=== PATIENT | female | born 1975 | race Caucasian/White ===

== ENCOUNTER → 2017-10-16 08:28 | Outpatient (CLI) | payer OTHER, SELFPAY ==
--- NOTE | 2017-10-16 08:30 | US_ITS ---
US transvaginal Ordering Physician: Monique Arteaga MD Patient Age: 42 years: Female HISTORY: ITS.REASON: abnormal/excessive bleeding Dysfunctional uterine bleeding. Last cycle lasted 2 months. Heavy bleeding. TECHNIQUE: Transvaginal pelvic ultrasound COMPARISON : CT abdomen pelvis 06/28/2012. Transvaginal pelvic ultrasound 07/02/2012. : FINDINGS : Difficult patient is scant. UTERUS retroverted retroflexed making it difficult to scan. The partially obscured.. Uterus 7 cm length x 3.3 cm AP x 5.55 cm wide A large nabothian cyst at cervix measures up to nearly 2 cm on my measurement this was seen on a previous CT and ultrasound from 2012 . other smallernabothian cyst observed. One measuring 7.7 mm Echogenic thickened Endometrial stripe measures to 1 cm LEFT OVARY x 4.2 cm X 3 cm x 2.6 cm Numerous follicles at margin left ovary. Dominant Cyst left ovary measuring up to 1.9 cm cm.. Other smaller follicles measuring less measures up to 1 cm. RIGHT OVARY: 4.1 cm x 2.5 x 2.1 cm. Largest cyst right ovary measuring up to 1.4 x 0 .8 cm other smaller follicles noted. Additional Area towards inferior aspect the right ovary imaged. Initially felt hemorrhagic cyst but there is some minimal flow to the its margins... This measures up to 2.2 cm length x 1.9 cm x 1.5 cm. Appears to be solid or semisolid with slightly mixed density. This may benefit from follow-up in several months. . No fluid in cul-de-sac IMPRESSION: ...... 1.. Difficult scan 2. Retroverted uterus, with thickened endometrium measuring 1 cm . 3. Large nabothian measuring up to 2 cm (which has been present since 2013 studies) 4. Ovaries mild enlarged bilaterally.: Follicular cystsbilaterally Left Ovary: dominant 1.9 cm cm dominant follicle cyst. Along with other additional moderate sized follicles Right Ovary: Largest follicle 1.4 cm. Also note ill-defined 2.2 cm x 1.9 cm area inferiorly-whichmay reflect a collapsing regressing hemorrhagic cyst although cannot exclude developing solid lesion. & Noted Doppler along margins.. May benefit from follow-up ultrasound in 2-3 months to further evaluate.
== END ==
PROVIDERS: Family Provider Family Medicine; PCP Family Medicine; Visit Provider Obstetrics & Gynecology
DX: N93.8 Other specified abnormal uterine and vaginal bleeding (principal); N92.0 Excessive and frequent menstruation with regular cycle; N94.6 Dysmenorrhea, unspecified; E28.2 Polycystic ovarian syndrome
CPT/HCPCS: 76830

== ENCOUNTER → 2018-08-21 11:22 | Outpatient (CLI) | payer OTHER, SELFPAY ==
--- NOTE | 2018-08-21 11:36 | XR_ITS ---
XR knee RT 4V HISTORY: ITS.REASON: ACUTE PAIN OF RIGHT KNEE ORDERING PHYSICIAN: GLORY Hopkins PATIENT AGE: 43 years COMPARISON: None FINDINGS: No fracture or dislocation. No lytic or blastic change. Normal mineralization. No significant arthritic changes evident. There is a small area bony exostosis along the proximal medial aspect of the tibia at the Roxanol diaphyseal region. The small area of exostosis points distally and may be due to a small osteochondroma. There is some minimal irregularity at this area of exostosis proximally. Follow-up is recommended to confirm stability. There are no previous exams available for comparison. IMPRESSION: 1. Small exostosis at the proximal medial aspect of the tibia . Consider follow-up to confirm stability 2. Otherwise negative
== END ==
PROVIDERS: PCP Physician Assistant; Visit Provider Physician Assistant
DX: M25.561 Pain in right knee (principal)
CPT/HCPCS: 73564

== ENCOUNTER → 2018-09-03 15:26 | Outpatient (CLI) | payer OTHER, SELFPAY ==
--- NOTE | 2018-09-03 15:31 | MR_ITS ---
MR knee RT wo con HISTORY: Medial right knee pain and swelling ITS.REASON: ACUTE PAIN OF RIGHT KNEE ORDERING PHYSICIAN: Radha Alanis MD PATIENT AGE: 43 years Comparison: 08/21/2018 TECHNIQUE: Standard multiplanar multiecho sequences are performed without contrast. FINDINGS: The cruciate ligaments are intact. The collateral ligaments, patellar tendon, and quadriceps tendon have an unremarkable appearance. The patellar cartilage is well preserved. No meniscal tear.. No fracture or dislocation or bone marrow edema evident. There is a medium sized knee joint effusion in the suprapatellar region. A loculated fluid collection is present along the proximal medial aspect of the tibia. This is incompletely imaged along its inferior margin that measures at least 4.4 cm cephalad to caudad 1.6 cm transverse and 2.3 cm AP. This is adjacent to a area of exostosis involving the proximal tibia as seen on the radiograph is well-circumscribed and without underlying edema. There is mild amount of edema within the subcutaneous soft tissues of the knee IMPRESSION: 1. No evidence of internal derangement of the knee 2. Medium sized knee joint effusion. 3. Loculated fluid collection along the medial and proximal aspect of the tibia adjacent to a small exostosis of the proximal tibia anterior to the medial head of the gastrocnemius .. This collection is medial to the sartorius and gracilis tendons and anterior to the semitendinosis tendon
== END ==
PROVIDERS: PCP Family Medicine; Visit Provider Family Medicine
DX: M25.561 Pain in right knee (principal)
CPT/HCPCS: 73721

== ENCOUNTER 2021-01-21 15:45 | Emergency (ER) | payer OTHER, SELFPAY ==
[2021-01-21 16:25] VITALS: BP 138/77; PULSE 75; RESP 17; TEMP 36.9; O2SAT 99; BMI 38.0
--- NOTE | 2021-01-21 16:51 | HMH.EDUTC ---
[facility] [place] Clinical Impression: Encounter for laboratory testing for COVID-19 virus Disposition: Home, Self-Care Condition on Discharge: Good Instructions: DI for COVID-19 (Suspected or Confirmed ), Coronavirus Disease 2019, Preventing the Spread of Coronavirus Discharge Instructions Additional Instructions: *Monitor Temp, Over the counter Motrin or Tylenol as directed/as needed Tylenol every 4 hours and Motrin every 6 hours (as long as your family doctor has told you that you can take it) for fever or pain. and straight to ER if unable to lower temp less than 101.0 after medication given Follow up IMMEDIATELY for new or worsening symptoms or no Noticeable improvement over the next 48-72 hours. 911 for difficulty breathing or swallowing You were tested for today for COVID19 your test result should be back in the next 24-48 hours, you may call to the [facility] to see if your test results are back in the next 48 hours [phone] [facility] hours are 9am-9pm You was given a handout with instructions for Self Quarantine and Self isolation for while you wait on test results and what to do if they are positive If you are positive the Health Dept will be contacting you also Referrals: Zach Jin MD [Primary Care Provider] - As needed Time of Disposition: 16:52 Medical Decision Making - José Miguel Inquiry Pt receiving controlled substance: No José Miguel was queried for this patient: No Vital Signs: 01/21/21 16:25 Temperature 98.4 F Temperature Source Oral Pulse Rate [Left Brachial] 75 Respiratory Rate 17 Blood Pressure [Left Arm] 138/77 Blood Pressure Mean [Left Arm] 97 Blood Pressure Source [Left Arm] Automatic Cuff Blood Pressure Position [Left Arm] Sitting 02 Sat by Pulse Oximetry 99 Oxygen Delivery Method Room Air Orders (Tests/Meds): ORDERS Category Date Time Status Covid-19 Nasal PCR ([facility]) Routine Lab 01/21/21 16:24 Ordered [facility] [place]PI - General Stated complaint: Covid test Time Seen by Provider: 01/21/21 16:51 Mode of Arrival: Ambulatory Source of Information: Patient Limitations: No Limitations Description of Symptoms (Recalled from Triage Doc. by RN): COVID TEST D/T EXPOSURE. DENIES SYMPTOMS HEENT Symptoms (Recalled from RN notes): No Resp Symptoms (Recalled from RN notes): No Skin Symptoms (Recalled from RN notes): No MS Symptoms (Recalled from RN notes): No Functional Status (Recalled from RN notes): WNL - History of Present Illness Provider Complaint: Patient states that she was around someone about a week ago that has since tested positive for COVID State that she is not having any symptoms but wanted to get tested to make sure - Related Data Home Medications Medication Instructions Recorded Confirmed omeprazole 20 mg capsule,delayed 20 mg PO ONCE 10/08/17 09/27/18 release Meloxicam 15 mg PO DAILY 12/31/17 09/27/18 Allergies Allergy/AdvReac Type Severity Reaction Status Date / Time cefaclor Allergy Verified 09/27/18 13:31 From BACTRIM Allergy Unknown I-ITCHING Uncoded 09/27/18 13:31 Penicillin Allergy Unknown I-HIVES Uncoded 09/27/18 13:31 - Worker's Comp Is this a Worker's Comp case?: No [facility] History - Hepatitis A Screen Drug use history?: No High risk sexual behaviors?: No History of sexually transmitted infection?: No Currently employed?: No Childcare worker?: No Do you have indoor plumbing?: Yes Do you have electricity?: Yes Attestation statement:: This patient has been screened for Hepatitis A risk factors. I have reviewed the patient's past medical history: Yes Medical History: Denies:: Anxiety, Asthma, Cancer, Depression, Diabetes Mellitus Type 1, Diabetes Mellitus Type 2, Hyperlipidemia, Hypertension, Internal Pacemaker, MRSA, Seizures Other Medical History: Denies: Blood Transfusion Reaction Other Surgeries: Yes: . No: Pacemaker Amputation: No Fractures: No Comment: ring finger on right hand, tip of finger,2014, LAP,2003 - So
[2021-01-21 16:55] VITALS: BP 138/77; PULSE 75; RESP 17; TEMP 36.9; O2SAT 99
== END 2021-01-21 16:59 | disposition home or self-care (01) ==
PROVIDERS: Emergency Provider Nurse Practitioner; PCP Family Medicine
DX: Z20.822 Contact with and (suspected) exposure to COVID-19 (principal); Z88.0 Allergy status to penicillin; Z88.2 Allergy status to sulfonamides
CPT/HCPCS: 99202; G0463; U0003

== ENCOUNTER 2021-02-06 18:14 | Emergency (ER) | payer OTHER, SELFPAY ==
[2021-02-06 20:27] VITALS: BP 141/94; PULSE 71; RESP 16; TEMP 36.6; O2SAT 98; BMI 32.6
--- NOTE | 2021-02-06 20:38 | HMH.EDUTC ---
[facility] [place] Disposition Clinical Impression: Exposure to COVID-19 virus Disposition: Home, Self-Care Condition on Discharge: Good Instructions: Preventing the Spread of Coronavirus Discharge Instructions Additional Instructions: Drink plenty of fluids. Take tylenol for pain or fever. Return if you begin to have difficulty breathing. Follow up with your regular doctor. GO TO THE ER FOR ANY WORSENING SYMPTOMS Quarantine until you know the results of your covid-19 test. If it is positive, the health department should call you and give you further instructions about your length of Quarantine and other thing. Referrals: Zach Jin MD [Primary Care Provider] - Time of Disposition: 20:38 Medical Decision Making - Medical Records Medical records reviewed: No: I reviewed the patient's medical records. - José Miguel Inquiry Pt receiving controlled substance: No Vital Signs: 02/06/21 20:27 02/06/21 20:45 Temperature 97.9 F 97.9 F Temperature Source Oral Pulse Rate 71 Pulse Rate [Left Radial] 71 Respiratory Rate 16 16 Blood Pressure 141/94 H Blood Pressure [Left Arm] 141/94 H Blood Pressure Mean [Left Arm] 109 Blood Pressure Source [Left Arm] Automatic Cuff Blood Pressure Position [Left Arm] Sitting 02 Sat by Pulse Oximetry 98 Oxygen Delivery Method Room Air [facility] [place] HPI - General Stated complaint: covid test Time Seen by Provider: 02/06/21 20:45 Mode of Arrival: Ambulatory Source of Information: Patient Limitations: No Limitations Description of Symptoms (Recalled from Triage Doc. by RN): Requesting COVID swab. Denies symptoms or exposure. HEENT Symptoms (Recalled from RN notes): No Resp Symptoms (Recalled from RN notes): No Skin Symptoms (Recalled from RN notes): No MS Symptoms (Recalled from RN notes): No Functional Status (Recalled from RN notes): n/a - History of Present Illness Provider Complaint: She is here needing to be tested for covid before she goes around some of her family. - Related Data Home Medications Medication Instructions Recorded Confirmed omeprazole 20 mg capsule,delayed 20 mg PO ONCE 10/08/17 09/27/18 release Meloxicam 15 mg PO DAILY 12/31/17 09/27/18 Allergies Allergy/AdvReac Type Severity Reaction Status Date / Time cefaclor Allergy Verified 09/27/18 13:31 From BACTRIM Allergy Unknown I-ITCHING Uncoded 09/27/18 13:31 Penicillin Allergy Unknown I-HIVES Uncoded 09/27/18 13:31 - Worker's Comp Is this a Worker's Comp case?: No [facility] History - Hepatitis A Screen Drug use history?: No High risk sexual behaviors?: No History of sexually transmitted infection?: No Currently employed?: No Childcare worker?: No Do you have indoor plumbing?: Yes Do you have electricity?: Yes Attestation statement:: This patient has been screened for Hepatitis A risk factors. I have reviewed the patient's past medical history: Yes Medical History: Denies:: Anxiety, Asthma, Cancer, Depression, Diabetes Mellitus Type 1, Diabetes Mellitus Type 2, Hyperlipidemia, Hypertension, Internal Pacemaker, MRSA, Seizures Other Medical History: Denies: Blood Transfusion Reaction Other Surgeries: Yes: . No: Pacemaker Amputation: No Fractures: No Comment: ring finger on right hand, tip of finger,2013, ,2002 - Social History Smoking Status: Never smoker #Yrs smoked (if former smoker): 15 Alcohol Intake: never Substance Use Type: denies use Occupational Status: employed - Psychiatric History Pschychiatric History:: Denies:: Anxiety, Depression Family Hx:: Diabetes, Hypertension, Thyroid Disorder ROS Obtained: Yes All systems reviewed & no additional complaints - Constitutional Constitutional: Reports system reviewed and no additional complaints, except as docu - Eyes Eyes: Reports system reviewed and no additional complaints, except as docu - ENT Ears, Nose, Mouth, and Throat: Reports system reviewed and no additional complaints, except a
[2021-02-06 20:45] VITALS: BP 141/94; PULSE 71; RESP 16; TEMP 36.6; O2SAT 98
== END 2021-02-06 20:46 | disposition home or self-care (01) ==
PROVIDERS: Emergency Provider Nurse Practitioner Family; PCP Family Medicine
DX: Z11.52 Encounter for screening for COVID-19 (principal); Z88.0 Allergy status to penicillin
CPT/HCPCS: 99202; G0463; U0003

== ENCOUNTER 2022-03-08 15:47 | Emergency (ER) | payer OTHER, SELFPAY ==
[2022-03-08 15:50] VITALS: BP 125/74; PULSE 65; RESP 16; TEMP 37.1; O2SAT 98; BMI 35.0
[2022-03-08 16:12] VITALS: BMI 34.0
[2022-03-08 16:20] LABS: Microscopic, Urine URINE MICROSCOPIC (MICROSCOPIC)
--- NOTE | 2022-03-08 16:28 | PC.NURSE ---
ed md at bedside for evaluation
--- NOTE | 2022-03-08 16:36 | HMH.EDGENADL ---
Discharge Plan Disposition Patient Disposition: Home, Self-Care Condition: Good Prescriptions Prescriptions: New cefadroxil 500 mg capsule 500 mg PO BID 7 Days Qty: 14 0RF valacyclovir 1 gram tablet 1,000 mg PO TID 7 Days Qty: 21 0RF No Action omeprazole 20 mg capsule,delayed release(DR/EC) 20 mg PO ONCE meloxicam 15 MG tablet 15 mg PO DAILY Referrals Follow up/Referrals: Zach Jin MD [Primary Care Provider] - See instructions Activity Restrictions/Add. Instructions Additional Instructions/Restrictions: Take both antibiotics as prescribed. If you have any other concerning signs or symptoms, return to the ER or your primary care doctor for further management. Stay hydrated while taking these medications. Clinical Impressions Clinical Impression: Flank pain, acute, UTI (urinary tract infection) Discharge ED Provider: Dillon Cadena General Adult HPI General Stated complaint: right side pain Time Seen by Provider: 03/08/22 16:05 Mode of Arrival: Ambulatory Source of Information: Patient Limitations: No Limitations History of Present Illness HPI narrative: Is a 46-year-old female with history of PCOS, obesity, status post tubal ligation who is presenting with right-sided abdominal pain. Patient states that 1 night prior to arrival, she was walking around her house when she had an acute, stabbing right-sided abdominal pain that started in her right flank and goes around to her abdomen. Since that time, it has been constant. She tried to take ibuprofen for symptomatic relief, it helped mildly. A couple hours later, continued to get progressively worse. Applying pressure seems to make it better, any other movement seems to make it worse. Denies fevers, chills, nausea, vomiting, diarrhea, constipation, dysuria, hematuria, frequency, urgency, abnormal pelvic discharge, or any other concerning history. Related Data Home Medications Medication Instructions Recorded Confirmed omeprazole 20 mg capsule,delayed 20 mg PO ONCE GERD 10/08/17 09/27/18 release meloxicam 15 mg tablet 15 mg PO DAILY plantar fascitis 12/31/17 09/27/18 Previous Rx's Medication Instructions Recorded cefadroxil 500 mg capsule 500 mg PO BID 7 days #14 caps 03/08/22 valacyclovir 1 gram tablet 1,000 mg PO TID 7 days #21 tabs 03/08/22 Allergies Allergy/AdvReac Type Severity Reaction Status Date / Time cefaclor Allergy Verified 09/27/18 13:31 From BACTRIM Allergy Unknown I-ITCHING Uncoded 09/27/18 13:31 Penicillin Allergy Unknown I-HIVES Uncoded 09/27/18 13:31 [facility] Social History Smoking Status: Never smoker alcohol intake: never substance use type: denies use current occupational status: employed Travel in the last 8 weeks: None ROS Obtained: Yes All systems reviewed & no additional complaints except as documented Physical Exam General General appearance: alert and in no apparent distress Head Head exam: atraumatic, normocephalic and normal inspection Eye Eye exam: Present normal appearance, PERRL and EOMI ENT ENT exam: Present normal exam, normal oropharynx, mucous membranes moist, TM's normal bilaterally and normal external ear exam Neck Neck exam: Present normal inspection, full ROM and trachea midline; Absent meningismus or lymphadenopathy Chest Chest inspection: Present normal inspection and symmetric chest wall rise; Absent tenderness Respiratory Respiratory exam: Present normal lung sounds bilaterally; Absent respiratory distress Cardiovascular Cardiovascular exam: Present regular rate and normal rhythm; Absent JVD Abdominal Exam Abdominal exam: Present soft, tenderness (Right side/right flank), normal bowel sounds and other (No evidence of rash, overlying skin changes at this time); Absent distention or guarding Extremities Exam Extremities exam: Present normal inspection, full ROM and normal capillary refill; Absent calf tenderness Back Exam Back exam: Pre
[2022-03-08 16:37] LABS: Appearance,Urine CLEAR (Clear); Bilirubin,Urine Negative (Negative); Blood, Urine Negative (Negative); Color,Urine YELLOW (Yellow); Glucose,Urine (UA) Negative (Negative); Ketones,Urine Negative (Negative); Leukocyte Esterase,Urine TRACE (Negative); Nitrate,Urine POSITIVE (Negative); Protein,Urine Negative (Negative); Specific Gravity, Urine 1.025 (1.005-1.030); Urobilinogen,Urine 0.2 EU/dl (0.2)
[2022-03-08 16:41] LABS: Urine Pregnancy, HCG Qual. Negative (Negative)
[2022-03-08 17:40] LABS: Alanine Aminotransferase 17 U/L (12-78); Albumin Level 4.2 g/dl (3.5-5.0); Albumin/Globulin Ratio 1.3 (1.1-1.8); Alkaline Phosphatase 84 U/L (38-126); Anion Gap 14.5 mEq/L (5-15); Aspartate Amino Transferase 26 U/L (14-36); Blood Urea Nitrogen 15 mg/dl (7-17); Carbon Dioxide 27 mmol/L (22.0-30.0); Chloride 101 mmol/L (98-107); Creatinine Clearance Estimated 158 mL/min (50-200); Estimated Glomerular Filt Rate 89 ml/min (>60); GFR (African American) 108 ML/MIN (>60); Globulin 3.2 g/dL (1.3-3.2); Glucose 117 mg/dl (74-100); Lipase 94 U/L (23-300); Potassium 4.5 mmoL/L (3.5-5.1); Sodium 138 mmol/L (136-145); Total Protein,Serum 7.4 g/dl (6.3-8.2)
[2022-03-08 17:42] LABS: Bilirubin,Total 0.1 mg/dl (0.2-1.3)
--- NOTE | 2022-03-08 17:46 | PC.NURSE ---
ROUNDED ON PT, SITTING UP IN BED TALKING WITH VISITOR, DENIES ANY PAIN RELIEF. MD NOTIFIED
[2022-03-08 17:48] LABS: Bacteria,Urine 4+ /lpf
[2022-03-08 17:57] LABS: Basophils # 0.1 K/mm3 (0-0.2); Eosinophils # 0.1 K/mm3 (0.0-0.4); Hematocrit 39.6 % (37.0-47.0); Hemoglobin 13.3 g/dL (12.2-16.2); Lymphocytes # 1.6 K/mm3 (0.7-4.5); Lymphocytes % 18.5 % (10-50); Mean Corpuscular HGB Conc 33.6 g/dL (31.8-35.4); Mean Corpuscular Hemoglobin 29.6 pg (27.0-31.2); Mean Corpuscular Volume 87.9 fl (81-99); Mean Platelet Volume 8.3 fl (7.4-10.4); Monocytes # 0.5 K/mm3 (0.1-1.0); Monocytes % 5.7 % (1.7-9.3); Neutrophils # 6.4 K/mm3 (1.8-7.8); Neutrophils % 73.8 % (37.0-80.0); Platelet Count 264 K/mm3 (142-424); Red Blood Count 4.51 M/mm3 (4.20-5.40); Red Cell Distribution Width 13.8 % (11.5-17.5); White Blood Count 8.7 K/mm3 (4.8-10.8)
--- NOTE | 2022-03-08 18:00 | PC.NURSE ---
ED MD AT BEDSIDE TO REEVALUATE PT
[2022-03-08 18:29] VITALS: BP 153/99; PULSE 76; RESP 17; TEMP 36.8; O2SAT 100
== END 2022-03-08 18:35 | disposition home or self-care (01) ==
PROVIDERS: Emergency Provider Emergency Medicine; PCP Family Medicine
DX: R10.31 Right lower quadrant pain (principal); E28.2 Polycystic ovarian syndrome; M72.2 Plantar fascial fibromatosis; K21.9 Gastro-esophageal reflux disease without esophagitis; B02.9 Zoster without complications; Z79.899 Other long term (current) drug therapy; Z88.0 Allergy status to penicillin; Z88.8 Allergy status to other drugs, medicaments and biological substances
CPT/HCPCS: 80053; 81001; 81025; 83690; 85025; 87086; 87088; 87186; 99283

== ENCOUNTER → 2022-03-17 07:58 | Outpatient (CLI) | payer OTHER, SELFPAY ==
--- NOTE | 2022-03-17 08:01 | US_ITS ---
FINAL REPORT TECHNIQUE: Multiple transverse and longitudinal images CLINICAL HISTORY: ABD PAIN,RUQ PAIN FINDINGS: The gallbladder shows no wall thickening. 6 mm gallbladder polyp. Subcentimeter gallstones. No biliary ductal dilatation is appreciated. No fluid collections are seen. Limited portions of the right liver are fatty infiltrated. Limited portions of the right kidney are unremarkable. IMPRESSION: Gallbladder polyp and gallstones. Fatty liver. Reviewed, Interpreted and Dictated by Radha Desai MD Transcribed by Jerrod Arce Authenticated and [facility]
== END ==
PROVIDERS: PCP Family Medicine; Visit Provider Nurse Practitioner Family
DX: R10.11 Right upper quadrant pain (principal)
CPT/HCPCS: 76705

== ENCOUNTER → 2022-04-12 08:21 | Outpatient (CLI) | payer OTHER, SELFPAY ==
[2022-04-12 09:08] LABS: Basophils # 0.1 K/mm3 (0-0.2); Basophils % 1.1 % (0.1-2.0); Eosinophils # 0.1 K/mm3 (0.0-0.4); Eosinophils % 1.3 % (0.1-12.0); Hemoglobin 13.4 g/dL (12.2-16.2); Lymphocytes # 1.7 K/mm3 (0.7-4.5); Mean Corpuscular Hemoglobin 28.4 pg (27.0-31.2); Mean Corpuscular Volume 88.9 fl (81-99); Mean Platelet Volume 8.4 fl (7.4-10.4); Monocytes # 0.3 K/mm3 (0.1-1.0); Monocytes % 4.4 % (1.7-9.3); Neutrophils # 4.3 K/mm3 (1.8-7.8); Neutrophils % 67.4 % (37.0-80.0); Platelet Count 287 K/mm3 (142-424); Red Blood Count 4.72 M/mm3 (4.20-5.40); White Blood Count 6.4 K/mm3 (4.8-10.8)
[2022-04-12 10:07] LABS: Alanine Aminotransferase 13 U/L (12-78); Albumin Level 3.9 g/dl (3.5-5.0); Albumin/Globulin Ratio 1.4 (1.1-1.8); Alkaline Phosphatase 87 U/L (38-126); Anion Gap 16.2 mEq/L (5-15); Aspartate Amino Transferase 20 U/L (14-36); Bilirubin,Total 0.4 mg/dl (0.2-1.3); Blood Urea Nitrogen 16 mg/dl (7-17); Calcium 8.9 mg/dl (8.4-10.2); Carbon Dioxide 27 mmol/L (22.0-30.0); Chloride 101 mmol/L (98-107); Estimated Glomerular Filt Rate 77 ml/min (>60); GFR (African American) 93 ML/MIN (>60); Globulin 2.8 g/dL (1.3-3.2); Glucose 120 mg/dl (74-100); Potassium 4.2 mmoL/L (3.5-5.1); Sodium 140 mmol/L (136-145); Total Protein,Serum 6.7 g/dl (6.3-8.2)
== END ==
PROVIDERS: PCP Family Medicine; Visit Provider Surgery
DX: Z01.812 Encounter for preprocedural laboratory examination (principal); K80.20 Calculus of gallbladder without cholecystitis without obstruction
CPT/HCPCS: 36415; 80053; 85025

== ENCOUNTER 2022-04-14 06:59 | Day surgery (SDC) | payer OTHER, SELFPAY ==
[2022-04-14] VITALS (14 sets, daily range): BP systolic 116–170; BP diastolic 74–100; PULSE 60–80; RESP 15–18; TEMP 36.2–43; O2SAT 90–98; BMI 34.3
[2022-04-14 07:22] LABS: Urine Pregnancy, HCG Qual. Negative (Negative)
--- NOTE | 2022-04-14 08:09 | P.PN_ITS ---
[facility] Medical History Bright's disease History of gastroesophageal reflux (GERD) Hypertension Surgical History History of amputation of finger of right hand History of section History of gynecological procedure History of tubal ligation Family History Other Thyroid cancer Social History Smoking Status: Former smoker pack-years: 15 alcohol intake: never substance use type: denies use current occupational status: employed Travel in the last 8 weeks: None [facility] Anesthesia Checklist Patient Identification Patient Identification: Arm Band and Verbal (Name & ) Structural Data Admitted From: Home Planned Operative Procedure/s: Lap. cholecysectomy Consent for Planned Operative Procedure(s) Verified: Yes NPO Status Verified Time NPO: 00:00 Additional verifications Anesthesia Reactions: No Hx Blood Transfusions: No Blood Transfusion Reaction: No Airway Assessment C-Spine Mobility Assessed: Yes TMJ Mobility Assessed: Yes Dentition: Edentulous Neurological Assessment Level of Consciousness: Awake Hx Seizures: No Numbness or tingling in extremities: No Anesthesia Plan Anesthesia Risk discussed: Yes Anesthesia Plan: Verified ASA Class: II Anesthesia Type: General
--- NOTE | 2022-04-14 10:02 | EXP.OP.NOTE ---
Date of procedure: 04/14/22 Pre-op Diagnosis:: Symptomatic gallstones Post-op Diagnosis:: Same Procedure performed:: Laparoscopic cholecystectomy Surgeon:: Phi Laureano MD Anesthesia: MALENA Estimated blood loss (mL): 15 Clinical Note:: Patient is a pleasant 46-year-old female who presents for cholecystectomy. She was referred by Yamileth Estrella for gallbladder.? I had previously taken care of the patient's for acute perforated appendicitis.? Patient had developed acute right upper thoracoabdominal flank pain which prompted ER evaluation on 03/08/2022.? Patient does state that she previously had shingles in 1992.? Patient was able to be managed as an outpatient.? She has had ongoing symptoms of relatively constant pain and discomfort in this location with occasional exacerbations.? She had taken 800 mg ibuprofen which gives her very temporary relief.? She underwent gallbladder ultrasound on 03/17/2022 which revealed 6 mm polyp as well as multiple subcentimeter gallstones with normal common bile duct and fatty liver. Operative findings:: She has somewhat thickened gallbladder. There is a large amount of fatty infiltration around the neck of the gallbladder. Operative note:: Patient was taken to the operating room. She was given preoperative intravenous antibiotics. In the operating room she was placed in a supine position. General anesthesia was induced via endotracheal tube. Abdomen was prepped and draped in the standard surgical fashion. Subumbilical skin incision was made in the previous laparoscopy scar. While performing abdominal wall lift Veress needle was inserted. CO2 pneumoperitoneum was achieved to 15 mmHg. 11 mm optical trocar was inserted at the umbilicus. She was positioned in reverse Trendelenburg left side down. A couple of 5 mm trochars were inserted in the right upper abdomen. 10 mm trocar was inserted in the epigastrium. She had some mild fatty infiltration of the liver. Gallbladder was grasped retracted anteriorly. Gallbladder was somewhat thickened. There was fatty infiltration around the neck of the gallbladder and guido hepatis. Infundibulum of the gallbladder was retracted anterior laterally. Blunt dissection was carried out the neck of the gallbladder ultimately identifying and isolating the cystic duct. Cystic artery was identified as well. Cystic duct was multiply clipped and sharply divided. Cystic artery was carefully coagulated with JOYCE ultrasonic robotic richard and divided. Gallbladder was dissected free from the liver in a retrograde fashion using JOYCE ultrasonic harmonic richard. There is a small amount of unavoidable spillage of bile from the gallbladder fundus and Hemoclip and Endoloop were placed on the gallbladder to close this. Gallbladder was then placed within an Endo Catch retrieval device and removed from the peritoneal cavity via the umbilical trocar site which required some minor stretching of the fascial incision for delivery. Gallbladder fossa was inspected for hemostasis. Some spot use of electrocautery was used on the gallbladder fossa for good hemostasis. Thorough irrigation was carried out until clear. Trochars were removed as CO2 pneumoperitoneum was evacuated. Fascia at the umbilicus was closed with several interrupted 0 Vicryl sutures. Local anesthetic was infiltrated. Skin incision was closed with 4-0 Monocryl in a subcuticular fashion. Dermabond and dressings were applied. Condition: stable Disposition: PACU Complications:: None immediately apparent
--- NOTE | 2022-04-14 10:12 | EXP.ANES.I ---
[facility] [place] Anesthesia Record Part I Anesthesia Record I Intake, IV Amount: 1,000 Estimated blood loss (mL): 10 Urine output (mL): 0 Blood Products used (#): none Blood Pressure: 144/93 SaO2: 95 Pulse Rate: 80 Respiratory Rate: 16 Temperature: 98.7 F Patient is:: Drowsy and Stable Stable to PACU at:: 10:05
--- NOTE | 2022-04-14 10:40 | SUR.PHASEI ---
1032 called and gave detailed report to Camilo Colmenares RN [id number] transported via stretcher to post op. vital signs stable. denies pain at this time. left in stable condition with Camilo Colmenares RN at bedside.
--- NOTE | 2022-04-14 14:31 | P.PNANES_ITS ---
[facility] Anesthesia Record Part II Anesthesia Record Part II Discharge Time: 10:35 Destination: Surgical Day Care (OP Surgery) PACU nurse assessment reviewed?: Yes Patient Condition:: Good Anesthesia Complications:: None Swallowing reflex intact?: Yes Cyanosis?: No Blood Pressure: 133/88 Pulse Rate: 64 Temperature: 98.7 F Mental Status: Alert & Oriented Pain level:: 0 Nausea and/or vomitting:: None Intake, IV Amount: 0
== END 2022-04-14 11:58 | disposition home or self-care (01) ==
PROVIDERS: PCP Family Medicine; Visit Provider Surgery
PROC: 0FT44ZZ Resection of Gallbladder, Percutaneous Endoscopic Approach (ICD-10-PCS; CPT 47562; principal; 2022-04-14 08:45)
DX: Z79.899 Other long term (current) drug therapy; K80.10 Calculus of gallbladder with chronic cholecystitis without obstruction
CPT/HCPCS: 47562; 81025; 96374; J2405; J2710

== ENCOUNTER → 2022-10-29 11:06 | Outpatient (CLI) | payer OTHER, SELFPAY ==
--- NOTE | 2022-10-29 11:11 | XR_ITS ---
FINAL REPORT CLINICAL HISTORY: LT KNEE PAIN FINDINGS: Left knee Three views were obtained. There is no acute fracture or dislocation. There are minimal degenerative changes of the medial compartment. No soft tissue abnormality is identified. IMPRESSION: No acute process. Reviewed, Interpreted and Dictated by Radha Desai MD Transcribed by Yamileth Iqbal Authenticated and [facility]
== END ==
LOC: RAD 11:07
PROVIDERS: PCP Nurse Practitioner Family; Visit Provider Nurse Practitioner Family
DX: M25.562 Pain in left knee (principal)
CPT/HCPCS: 73562

== ENCOUNTER 2022-11-24 12:24 | Emergency (ER) | payer OTHER, SELFPAY ==
[2022-11-24 12:30] VITALS: BP 146/83; BP 152/90; PULSE 82; PULSE 84; RESP 20; TEMP 36.8; O2SAT 96; O2SAT 97; BMI 34.7
--- NOTE | 2022-11-24 12:42 | XR_ITS ---
FINAL REPORT TECHNIQUE: Single view chest CLINICAL HISTORY: cough FINDINGS: A single view of the chest was obtained. The heart and mediastinum are within normal limits. The lungs are clear. There is no pneumothorax. Osseous structures are unremarkable. IMPRESSION: No acute cardiopulmonary process. Reviewed, Interpreted and Dictated by Lisa Rhodes MD Transcribed by Roula Jeong Authenticated and . [facility]
--- NOTE | 2022-11-24 12:42 | PC.NURSE ---
Dr. Seals at
--- NOTE | 2022-11-24 12:43 | HMH.EDGENADL ---
Discharge Plan Disposition Patient Disposition: Home, Self-Care Condition: Good Prescriptions Prescriptions: New azithromycin 250 mg tablet See Rx Instructions .ROUTE .COMPLEX Qty: 6 0RF Rx Instructions: For 250 mg dose pack: take 500 mg today (day 1), then 250 mg for 4 days (days 2-5) benzonatate 200 mg capsule 200 mg PO TID PRN (Reason: cough) Qty: 14 0RF Referrals Follow up/Referrals: Zach Jin MD [Primary Care Provider] - See instructions Activity Restrictions/Add. Instructions Additional Instructions/Restrictions: You have been evaluated for cough and shortness of breath. Diagnosed with atypical pneumonia. Please take azithromycin as prescribed. Benzoate for cough. Follow-up with your primary care doctor in 1 to 2 days for symptom recheck. Return to the emergency department for any new or worsening symptoms Clinical Impressions Clinical Impression: Atypical pneumonia, Cough Instructions Patient Instructions: DI for Atypical Pneumonia Discharge ED Provider: Carmela Seals Adult HPI General Chief complaint: Upper Respiratory Infection Stated complaint: Chest congestion Time Seen by Provider: 11/24/22 12:33 Mode of Arrival: Ambulatory Source of Information: Patient Limitations: No Limitations Description of Symptoms (Recalled from ER Triage Doc. by RN): pt to ed c/o headache, cough, congestion since thursday. pt reports goig swimming on and waking up with symptoms thursday. History of Present Illness HPI narrative: 47-year-old female presenting to the emergency department with cough and shortness of breath. Symptoms started on Thursday, 2 days ago. She was swimming in her pool the night before. Woke up in the morning and was congested, had a dry cough. Symptoms have gotten worse. She now has a cough that is productive of grayish-white sputum. Cough is described as hacking, constant. She has occasional sore throat and runny nose. Denies history of asthma or allergies. Former tobacco smoker. No chest pain, abdominal pain, nausea, vomiting. Related Data Previous Rx's Medication Instructions Recorded azithromycin 250 mg tablet See Rx Instructions PO .COMPLEX #6 11/24/22 tabs benzonatate 200 mg capsule 200 mg PO TID PRN cough #14 caps 11/24/22 Allergies Allergy/AdvReac Type Severity Reaction Status Date / Time cefaclor Allergy Verified 11/18/22 15:02 From BACTRIM Allergy Unknown I-ITCHING Uncoded 11/18/22 15:02 Penicillin Allergy Unknown I-HIVES Uncoded 11/18/22 15:02 [facility] Disclaimer: The information contained in this section may have been updated after the patient was seen, as this information can be updated by other users. Medical History Bright's disease History of gastroesophageal reflux (GERD) Hypertension Surgical History History of amputation of finger of right hand History of section History of gynecological procedure History of tubal ligation Hx laparoscopic cholecystectomy Family History Other Thyroid cancer Social History Smoking Status: Never smoker alcohol intake: never substance use type: denies use current occupational status: employed Travel in the last 8 weeks: None ROS Obtained: Yes All systems reviewed & no additional complaints except as documented Constitutional Constitutional: Reports body ache, Reports chills, Denies fever(s), Denies headache(s) and Denies weakness ENT Ears, Nose, Mouth, and Throat: Denies headache(s), Denies neck pain and Reports sore throat Respiratory Respiratory: Reports chest congestion, Reports cough and Denies wheezing Gastrointestinal Gastrointestingal: Denies abdominal pain, nausea or vomiting Musculoskeletal Musculoskeletal: Denies neck timo
[2022-11-24 12:50] LABS: Coronavirus 19, PCR Not Detected (NotDetected); Influenza A, PCR Not Detected (NotDetected); Influenza B, PCR Not Detected (NotDetected)
[2022-11-24 13:00] VITALS: BP 135/90; PULSE 82; O2SAT 95
--- NOTE | 2022-11-24 13:02 | PC.NURSE ---
rad at BS for portable xray
[2022-11-24 13:30] VITALS: BP 143/92; PULSE 74; O2SAT 96
[2022-11-24 14:00] VITALS: BP 127/95; PULSE 89; O2SAT 96
[2022-11-24 14:05] VITALS: BP 127/95; PULSE 88; RESP 18; TEMP 36.8; O2SAT 95
== END 2022-11-24 14:05 | disposition home or self-care (01) ==
PROVIDERS: Emergency Provider Emergency Medicine; PCP Family Medicine
DX: J18.9 Pneumonia, unspecified organism (principal); R51.9 Headache, unspecified; I10 Essential (primary) hypertension; Z87.891 Personal history of nicotine dependence
CPT/HCPCS: 71045; 87635; 87636; 99283; 99284; C9803; U0003; U0005

== ENCOUNTER → 2022-11-27 14:55 | Outpatient (CLI) | payer OTHER, SELFPAY ==
--- NOTE | 2022-11-27 14:55 | MR_ITS ---
FINAL REPORT TECHNIQUE: Multiplanar MR without contrast CLINICAL HISTORY: lt knee pain HARD TO WALK ,X 1.5 MONTHS NO INJURY FINDINGS: Articular cartilage: There is mild diffuse thinning of the articular cartilage without a focal osteochondral defect. There is grade 3 chondromalacia of the patella medially. Marrow signal: Subchondral cysts in the central tibia and femur, which may be related to insertional cysts or associated small osteochondral defects. Joint fluid: Small joint effusion Menisci: There is an oblique tear of the posterior horn of the medial meniscus associated with a complex multi septated parameniscal cyst measuring 3 cm in greatest diameter. Ligaments: Intact IMPRESSION: Tear posterior horn medial meniscus with associated parameniscal cyst. Arthritic changes. Reviewed, Interpreted and Dictated by Radha Desai MD Transcribed by Clare Fitch Authenticated and [facility]
== END ==
LOC: RAD 14:55
PROVIDERS: PCP Family Medicine; Visit Provider Orthopaedic Surgery
DX: M25.562 Pain in left knee (principal)
CPT/HCPCS: 73721

== ENCOUNTER 2023-08-20 09:25 | Outpatient (CLI) | payer OTHER, SELFPAY ==
--- NOTE | 2023-08-20 09:35 | ECG_ITS ---
APPROVED REPORT Exam: Resting ECG HR:58 bpm ECG Measurements Heart Rate 58 AXES CA 170 P 55 QRSd 79 QRS 46 QT 439 T 60 QTc 436 Conclusion SINUS BRADYCARDIA WITH SINUS ARRHYTHMIA LOW QRS VOLTAGE IN PRECORDIAL LEADS [QRS DEFLECTION < 1.0 mV IN CHEST LEADS] BORDERLINE ECG UNCONFIRMED REPORT Electronically signed by : Danial Silver MD 08/20/2023 19:58:33
--- NOTE | 2023-08-20 09:42 | XR_ITS ---
FINAL REPORT CLINICAL HISTORY: Pre Op left knee august FINDINGS: PA and lateral views of the chest are obtained. There is no prior exam for comparison. The cardiac and mediastinal silhouettes are within normal limits. The lungs are clear. There is no pleural effusion, pneumothorax, or acute osseous abnormality. IMPRESSION: No radiographic evidence of acute cardiac or pulmonary disease. Reviewed, Interpreted and Dictated by Lisa Rhodes MD Transcribed by Alyse Beckett Authenticated and [facility]
[2023-08-20 09:57] LABS: Basophils # 0.1 K/mm3 (0-0.2); Basophils % 1.2 % (0.1-2.0); Eosinophils # 0.1 K/mm3 (0.0-0.4); Eosinophils % 1.6 % (0.1-12.0); Hematocrit 42.6 % (37.0-47.0); Hemoglobin 13.8 g/dL (12.2-16.2); Lymphocytes # 1.8 K/mm3 (0.7-4.5); Lymphocytes % 26.1 % (10-50); Mean Corpuscular HGB Conc 32.4 g/dL (31.8-35.4); Mean Corpuscular Hemoglobin 28.9 pg (27.0-31.2); Mean Corpuscular Volume 89.1 fl (81-99); Mean Platelet Volume 8.4 fl (7.4-10.4); Monocytes # 0.3 K/mm3 (0.1-1.0); Monocytes % 4.7 % (1.7-9.3); Neutrophils # 4.5 K/mm3 (1.8-7.8); Neutrophils % 66.3 % (37.0-80.0); Platelet Count 234 K/mm3 (142-424); Red Blood Count 4.78 M/mm3 (4.20-5.40); Red Cell Distribution Width 14.5 % (11.5-17.5); White Blood Count 6.9 K/mm3 (4.8-10.8)
[2023-08-20 10:31] LABS: Alanine Aminotransferase 15 U/L (12-78); Albumin Level 4.2 g/dl (3.5-5.0); Albumin/Globulin Ratio 1.4 (1.1-1.8); Alkaline Phosphatase 80 U/L (38-126); Anion Gap 9.1 mEq/L (5-15); Aspartate Amino Transferase 21 U/L (14-36); Bilirubin,Total 0.5 mg/dl (0.2-1.3); Blood Urea Nitrogen 12 mg/dl (7-17); Calcium 9.3 mg/dl (8.4-10.2); Carbon Dioxide 29 mmol/L (22.0-30.0); Chloride 104 mmol/L (98-107); Estimated Glomerular Filt Rate 76 ml/min (>60); GFR (African American) 92 ML/MIN (>60); Globulin 2.9 g/dL (1.3-3.2); Glucose 107 mg/dl (74-100); Potassium 4.1 mmoL/L (3.5-5.1); Sodium 138 mmol/L (136-145); Total Protein,Serum 7.1 g/dl (6.3-8.2)
== END 2023-08-20 23:59 ==
PROVIDERS: PCP Family Medicine; Visit Provider Orthopaedic Surgery
DX: Z01.818 Encounter for other preprocedural examination (principal); S83.232D Complex tear of medial meniscus, current injury, left knee, subsequent encounter
CPT/HCPCS: 36415; 71046; 80053; 85025; 93005

== ENCOUNTER 2023-08-31 07:47 | Day surgery (SDC) | payer OTHER, SELFPAY ==
[2023-08-28 11:00] VITALS: BMI 34.7
[2023-08-31] VITALS (14 sets, daily range): BP systolic 110–147; BP diastolic 74–89; PULSE 59–78; RESP 13–18; TEMP 36.1–43; O2SAT 87–98
[2023-08-31] MEDS: LACTATED RINGERS 1000ML 1,000 ML 25 ML IV (08:29)
--- NOTE | 2023-08-31 08:40 | P.PNANES_ITS ---
[facility] Disclaimer: The information contained in this section may have been updated after the patient was seen, as this information can be updated by other users. Medical History Bright's disease History of gastroesophageal reflux (GERD) Hypertension Surgical History History of amputation of finger of right hand History of section History of gynecological procedure History of tubal ligation Hx laparoscopic cholecystectomy Family History Other Thyroid cancer Social History (Updated 08/31/23 @ 08:27 by Clara Porras RN) Smoking Status: Never smoker alcohol intake: never substance use type: denies use current occupational status: employed Travel in the last 8 weeks: None [facility] Anesthesia Checklist Patient Identification Patient Identification: Arm Band, Family () and Verbal (Name & ) Structural Data Admitted From: Home Planned Operative Procedure/s: Left knee scope Consent for Planned Operative Procedure(s) Verified: Yes Verified Documents: Surgical Consent and History and Physical NPO Status Verified Time NPO: 18:30 Chart Verification Results Verified: CBC, BMP, ECG and Chest Xray Additional verifications Patient : No (post-menpoausal) Anesthesia Reactions: No Hx Blood Transfusions: No Blood Transfusion Reaction: No Cephalosporin Allergy: Yes Cardiovascular Assessment Heart Sounds: S1 & S2 Pulse Rhythm: Irregular Peripheral Edema: No Airway Assessment Mallampati Score:: Class II C-Spine Mobility Assessed: Yes (FROM) TMJ Mobility Assessed: Yes Dentition: Edentulous Neurological Assessment Level of Consciousness: Awake, Alert, Appropriate and Follows Commands Hx Seizures: No Numbness or tingling in extremities: No Anesthesia Plan Anesthesia Risk discussed: Yes Anesthesia Plan: Verified ASA Class: III Anesthesia Type: General
[2023-08-31] MEDS: BUPIVACAINE 0.25% 30ML VIAL 75 MG (10:37)
[2023-08-31] MEDS: CLINDAMYCIN PHOSPHATE/D5W 900 MG/50 ML PIGGYBACK 106 MG IV (10:37)
[2023-08-31] MEDS: RINGERS SOLUTION,LACTATED 6,000 ML 6000 ML IR (10:38)
--- NOTE | 2023-08-31 10:55 | P.OP_ITS ---
Date of procedure: 08/31/23 Pre-op Diagnosis:: Left knee complex medial meniscus tear and parameniscal cyst Post-op Diagnosis:: Same Procedure performed:: Left knee arthroscopy with partial medial meniscectomy and rupture of parameniscal cyst Surgeon:: Ubaldo Serrano DO CHIEF EXECUTIVE OR MANAGING DIRECTOR:: Chinedu Quintero Anesthesia: GETA Estimated blood loss (mL): 0 Operative findings:: Large complex tear posterior horn and body of the medial meniscus Operative note:: Patient is identified preoperatively. Left knee marked with a yes and my initials. Transported operative suite placed upon the operating bed general anesthesia ministered airway secured. Left lower extremity then prepped and draped within the knee beach. Once prepped and draped final operative timeout performed to identify proper patient procedure and extremity. Everyone involved the case agreed. No counter indications beginning. Did receive preoperative antibiotics. Marking pen was used to raghavendra bony landmarks and knee and standard portal sites. Esmarch was used to exsanguinate extremity pneumatic tourniquet inflated to 300 mmHg. Skin knife was used to incise standard anterior lateral portal and blunt with trocar was placed in the patellofemoral joint. Swept directly into the medial joint line where the anterior medial portal was made under direct visualization and the help of an 18-gauge spinal needle. This is exchanged with a probe there is a large complex macerated tear of the posterior horn and body of the medial meniscus. Using combination of straight biter and sucker shaver partial medial meniscectomy was performed back to stable rim. Sucker shaver was then placed near this area and placed on suction to rupture the parameniscal cyst with some slight return of fluid present. Then swept into the intercondylar notch the ACL was seen and intact. There was a small osteophyte on the medial aspect of the intercondylar notch which was not impinging. Scope into the lateral joint line the lateral cartilage was intact lateral meniscus intact. I swept back into the medial lateral gutters no pathology was seen there. In the patellofemoral joint patella did track midline in the trochlea there is some mild softening of the trochlea and undersurface the patella but no loose fraying cartilage. Cameras removed the joint was drained. Local anesthesia infiltrated the portal sites skin closed with nylon stitch. Sterile dressing placed from toe to thigh patient waken anesthesia taken recovery stable condition. Condition: stable Disposition: PACU Complications:: None apparent
--- NOTE | 2023-08-31 11:04 | P.PNANES_ITS ---
[facility] Anesthesia Record Part I Anesthesia Record I Intake, IV Amount: 900 Hydration: Adequate Estimated blood loss (mL): 5 Urine output (mL): 0 Blood Products used (#): none Blood Pressure: 120/80 SaO2: 92 Pulse Rate: 68 Airway Patency: Patent Respiratory Rate: 16 Temperature: 97.5 F Patient is:: Drowsy and Stable Stable to PACU at:: 11:00
[2023-08-31] MEDS: HYDROMORPHONE 2MG/ML SYRINGE 0.5 MG IV ×3 (11:25→11:35)
[2023-08-31] MEDS: MORPHINE 2MG/ML SYRINGE 2 MG IV (11:40)
[2023-08-31] MEDS: ONDANSETRON 4MG/2ML VIAL 4 MG IV (11:43)
--- NOTE | 2023-08-31 16:07 | P.PNANES_ITS ---
[facility] Anesthesia Record Part II Anesthesia Record Part II Discharge Time: 11:40 Destination: Surgical Day Care (OP Surgery) PACU nurse assessment reviewed?: Yes Patient Condition:: Good Anesthesia Complications:: None Swallowing reflex intact?: Yes Airway Patency: Patent Cyanosis?: No Blood Pressure: 147/89 SaO2: 94 Respiratory Rate: 17 Pulse Rate: 77 Temperature: 97.6 F Mental Status: Alert & Oriented Pain level:: 8 Nausea and/or vomitting:: None Intake, IV Amount: 0 Hydration: Adequate
== END 2023-08-31 12:40 | disposition home or self-care (01) ==
PROVIDERS: PCP Family Medicine; Visit Provider Orthopaedic Surgery
PROC: (CPT 29870; principal; 2023-08-31 09:45)
DX: S83.232A Complex tear of medial meniscus, current injury, left knee, initial encounter (principal); M25.562 Pain in left knee
CPT/HCPCS: 29881; 96374; J2405

== ENCOUNTER 2024-01-19 13:47 | Outpatient (CLI) | payer OTHER, SELFPAY ==
--- NOTE | 2024-01-19 13:48 | MR_ITS ---
FINAL REPORT CLINICAL HISTORY: Lt Knee Pain pt had meniscus repaired 08/31/2023 and pain has gotten worse in her knee. popping in the knee when bending COMPARISON: 11/27/2022 FINDINGS: Multi planar MR imaging was performed of the left knee. The anterior and posterior cruciate ligaments are intact. The quadriceps and patellar tendons are intact. There is a large tear of the posterior horn of the medial meniscus, stable from the prior exam. There is abnormal thickening and edema within the medial compartment ligament complex probably related to MCL strain. The lateral collateral ligament is intact. The medial and lateral retinacula appear intact. There is no evidence of bone marrow edema or osteochondral defect. There are multiple small degenerative cysts in the mid tibial plateau. No evidence of soft tissue inflammatory reaction. IMPRESSION: Stable large tear posterior horn medial meniscus. New extensive edema and irregularity of the MCL complex, probably related to MCL strain or partial tear. Reviewed, Interpreted and Dictated by Abhijit Mendoza MD Transcribed by Alyse Beckett Authenticated and [facility]
== END 2024-01-19 23:59 | disposition home or self-care (01) ==
LOC: RAD 13:48
PROVIDERS: PCP Family Medicine; Visit Provider Orthopaedic Surgery
DX: M25.562 Pain in left knee (principal); M23.92 Unspecified internal derangement of left knee
CPT/HCPCS: 73721

== ENCOUNTER 2024-01-28 13:49 | Outpatient (CLI) | payer OTHER, SELFPAY ==
[2024-01-28 14:11] LABS: Basophils # 0.1 K/mm3 (0-0.2); Basophils % 0.7 % (0.1-2.0); Eosinophils # 0.1 K/mm3 (0.0-0.4); Eosinophils % 1.7 % (0.1-12.0); Hematocrit 38.3 % (37.0-47.0); Hemoglobin 12.4 g/dL (12.2-16.2); Lymphocytes # 1.5 K/mm3 (0.7-4.5); Lymphocytes % 20.4 % (10-50); Mean Corpuscular HGB Conc 32.3 g/dL (31.8-35.4); Mean Corpuscular Hemoglobin 28.6 pg (27.0-31.2); Mean Corpuscular Volume 88.4 fl (81-99); Mean Platelet Volume 8.4 fl (7.4-10.4); Monocytes # 0.3 K/mm3 (0.1-1.0); Monocytes % 3.9 % (1.7-9.3); Neutrophils # 5.3 K/mm3 (1.8-7.8); Neutrophils % 73.3 % (37.0-80.0); Platelet Count 258 K/mm3 (142-424); Red Blood Count 4.34 M/mm3 (4.20-5.40); Red Cell Distribution Width 14.8 % (11.5-17.5); White Blood Count 7.3 K/mm3 (4.8-10.8)
[2024-01-28 14:41] LABS: Anion Gap 10.8 mEq/L (5-15); Blood Urea Nitrogen 10 mg/dl (7-17); Carbon Dioxide 25 mmol/L (22.0-30.0); Chloride 108 mmol/L (98-107); Estimated Glomerular Filt Rate 106 ml/min (>60); GFR (African American) 128 ML/MIN (>60); Glucose 93 mg/dl (74-100); Potassium 3.8 mmoL/L (3.5-5.1); Sodium 140 mmol/L (136-145)
== END 2024-01-28 23:59 | disposition home or self-care (01) ==
LOC: LAB 13:49
PROVIDERS: PCP Family Medicine; Visit Provider Orthopaedic Surgery
DX: M25.862 Other specified joint disorders, left knee (principal); S83.232A Complex tear of medial meniscus, current injury, left knee, initial encounter
CPT/HCPCS: 36415; 80048; 85025

== ENCOUNTER 2024-02-03 06:01 | Day surgery (SDC) | payer OTHER, SELFPAY ==
[2024-02-02 10:46] VITALS: BMI 34.9
[2024-02-03] VITALS (11 sets, daily range): BP systolic 124–161; BP diastolic 69–100; PULSE 65–91; RESP 14–19; TEMP 36.1–36.6; O2SAT 91–96
[2024-02-03] MEDS: LACTATED RINGERS 1000ML 1,000 ML 25 ML IV (06:29)
[2024-02-03] MEDS: CLINDAMYCIN PHOSPHATE/D5W 900 MG/50 ML PIGGYBACK 100 MG IV (07:22)
[2024-02-03] MEDS: BUPIVACAINE 0.25% 30ML VIAL 75 MG (07:51)
[2024-02-03] MEDS: RINGERS SOLUTION,LACTATED 6,000 ML 25 ML IR (07:51)
--- NOTE | 2024-02-03 08:11 | EXP.OP.NOTE ---
Date of procedure: 02/03/24 Pre-op Diagnosis:: Left knee recurrent meniscal medial tear Post-op Diagnosis:: Same Procedure performed:: Left knee arthroscopy partial medial meniscectomy Surgeon:: Ubaldo Serrano DO Passenger Brakeman(s):: Jose GONZALEZ BILINGUAL RESEARCH INTERVIEWER:: Alonzo Morelos Anesthesia: GETA Estimated blood loss (mL): 0 Operative findings:: Recurrent macerated tear posterior horn medial meniscus Operative note:: Patient is identified preoperatively. Left knee marked with yes and my initials. Transported operative suite. Placed on operating bed. General anesthesia administered airway secured. Left lower extremity prepped and draped normal sterile fashion. Once prepped and draped final operative timeout performed to identify proper patient procedure and extremity. Everyone involved the case agreed. No counter indications to beginning. Did receive preoperative antibiotics. Marking pen was used to raghavendra the bony landmarks of the knee and standard portal sites. Esmarch was used to exsanguinate the extremity and pneumatic tourniquet inflated to 300 mmHg. Skin knife was used incise standard anterior lateral portal and blunt trocar was placed in the patellofemoral joint exchange with a camera. I swept directly into the medial joint line where the anterior medial portal was made with the help of an 18-gauge spinal needle. Within the medial joint line and placed a probe there was a large macerated recurrent tear of the posterior horn and body of the medial meniscus. Using a combination of straight biter and sucker shaver partial medial meniscectomy was performed back to stable rim. Swept into the intercondylar notch the ACL was seen and intact. There is some fraying of the anterior medial bundle but no ron tearing. Attention is then brought to the lateral joint line within the lateral joint line the cartilage of intact the meniscus was intact. I swept back into the medial lateral gutters with sweeping into the medial gutter there was some fraying and some scar tissue rubbing on the medial femoral condyle which was debrided with a sucker shaver. Final drive-through the knee showed no further pathology. Cameras removed. Joint was drained. Local anesthesia infiltrated the portal sites. Skin closed with nylon stitch sterile dressing placed from toe to thigh. Patient waken anesthesia taken recovery in stable condition. Condition: stable Disposition: PACU Complications:: None apparent
--- NOTE | 2024-02-03 08:17 | EXP.ANES.CKL ---
[facility] Disclaimer: The information contained in this section may have been updated after the patient was seen, as this information can be updated by other users. Medical History Bright's disease History of gastroesophageal reflux (GERD) Hypertension Surgical History H/O left knee surgery Hx laparoscopic cholecystectomy History of gynecological procedure History of tubal ligation History of amputation of finger of right hand History of section Family History Other Thyroid cancer Social History (Updated 02/03/24 @ 06:18 by Alyse Hill RN) Smoking Status: Former smoker alcohol intake: never substance use type: denies use current occupational status: employed Travel in the last 8 weeks: None [facility] Anesthesia Checklist Patient Identification Patient Identification: Verbal (Name & ) Structural Data Admitted From: Home Planned Operative Procedure/s: l knee arthroscopy Consent for Planned Operative Procedure(s) Verified: Yes NPO Status Verified Time NPO: 00:00 Additional verifications Anesthesia Reactions: No Hx Blood Transfusions: No Blood Transfusion Reaction: No Airway Assessment Mallampati Score:: Class II C-Spine Mobility Assessed: Yes TMJ Mobility Assessed: Yes Dentition: Edentulous Neurological Assessment Level of Consciousness: Awake, Alert and Appropriate Anesthesia Plan Anesthesia Risk discussed: Yes Anesthesia Plan: Verified ASA Class: II Anesthesia Type: General
--- NOTE | 2024-02-03 08:18 | EXP.ANES.I ---
[facility] Anesthesia Record Part I Anesthesia Record I Intake, IV Amount: 1,200 Hydration: Adequate Estimated blood loss (mL): 0 Urine output (mL): 0 Blood Pressure: 147/100 SaO2: 92 Pulse Rate: 88 Airway Patency: Patent Respiratory Rate: 14 Temperature: 97.5 F Patient is:: Awake and Stable Stable to PACU at:: 08:15
[2024-02-03] MEDS: MORPHINE 2MG/ML SYRINGE 2 MG IV (08:50)
[2024-02-03] MEDS: MEPERIDINE 25MG/ML 1ML SYRINGE 25 MG IV (08:56)
--- NOTE | 2024-02-04 08:04 | P.PNANES_ITS ---
[facility] Anesthesia Record Part II Anesthesia Record Part II Discharge Time: 09:05 Destination: Surgical Day Care (OP Surgery) PACU nurse assessment reviewed?: Yes Patient Condition:: Good Anesthesia Complications:: None Swallowing reflex intact?: Yes Airway Patency: Patent Cyanosis?: No Blood Pressure: 150/90 SaO2: 94 Respiratory Rate: 18 Pulse Rate: 70 Temperature: 97.8 F Mental Status: Alert & Oriented Pain level:: 8 Nausea and/or vomitting:: None Intake, IV Amount: 0 Hydration: Adequate
[2024-02-04 08:05] VITALS: BP 150/90; PULSE 70; RESP 18; TEMP 36.6; O2SAT 94
== END 2024-02-03 09:39 | disposition home or self-care (01) ==
PROVIDERS: PCP Family Medicine; Visit Provider Orthopaedic Surgery
PROC: (CPT 29870; principal; 2024-02-03 07:30)
DX: S83.232A Complex tear of medial meniscus, current injury, left knee, initial encounter (principal)
CPT/HCPCS: 29881; 96374; J1100; J1885; J2175; J2250; J2270; J2405; J3010; J7120

== ENCOUNTER 2024-03-16 17:00 | Outpatient (RCR) | payer OTHER, SELFPAY ==
--- NOTE | 2024-03-02 16:18 | HMH.PTOPEV ---
PT Outpatient Evaluation Rehab PT Outpatient Evaluation Start: 03/02/24 15:57 Freq: Status: Active Protocol: Document 03/02/24 15:57 TORSTEN (Rec: 03/02/24 16:17 TORSTEN [id number]) E-signed By Benji Arteaga, PT Outpatient Therapy Subjective History Subjective History This is the initial PT eval for Tammy Colindres, 48 yowf who presents ~ 1 mo S/P L knee arthroscopy with partial meniscectomy with continued stiffness and pain. She also reports she had a prior L knee arthroscopy for similar injury ~ 5 mos ago, but she re-injured her knee. She reports stiffness and pain are worse with activity and she continues to use a cane while at work. She reports no significant PMH. New diagnosis of cancer in past 12 No months? Chief Complaint Pain,Stiff Symptom Type Ache Symptoms Relieved By Rest/Positioning,Ice Symptoms Aggravated By Physical Activity Level of pain today (0-10) 0 Pain scale - at its best (0-10) 0 Pain scale - at its worst (0-10) 10 Hip/Knee Eval Gait Observation General Gait Pattern Observation Antalgic Gait Assistive Device Assistive Devices None / NA Palpation Tenderness left Knee Palpation Finding Tenderness Knee Palpation Overall Comment medial and lateral patella 2/4 MMT Hip Flexion Strength Grade 4 Good Hip Abduction Strength Grade 5 Normal Hip Adduction Strength Grade 5 Normal Hip External Rotation Strength Grade 4 Good Hip Internal Rotation Strength Grade 4 Good Knee Extension Strength Grade 5 Normal Knee Flexion Strength Grade 4 Good ROM Knee Extension Active Range of Motion ( 0 degrees) Knee Flexion Active Range of Motion ( 0-120 degrees) Lower Extremity Functional Index Activities Today, do you or would you have any difficulty at all with: a.Any of your usual work, housework or A little bit of difficulty school activities b. Your usual hobbies, recreational or No difficulty sporting activities c. Getting into or out of the bath A little bit of difficulty d. Walking between rooms A little bit of difficulty e. Putting on your shoes or socks Moderate difficulty f. Squatting Extreme difficulty or unable to perform activity g. Lifting an object, like a bag of Quite a bit of difficulty groceries from the floor h. Performing light activities around Extreme difficulty or unable your home to perform activity i. Performing heavy activities around Extreme difficulty or unable your home to perform activity j. Getting into or out of a car No difficulty k. Walking 2 blocks Moderate difficulty l. Walking a mile A little bit of difficulty m. Going up or down 10 stairs (about 1 Quite a bit of difficulty flight of stairs) n. Standing for 1 hour Quite a bit of difficulty o. Sitting for 1 hour No difficulty p. Running on even ground Extreme difficulty or unable to perform activity q. Running on uneven ground Extreme difficulty or unable to perform activity r. Making sharp turns while running fast Extreme difficulty or unable to perform activity s. Hopping Extreme difficulty or unable to perform activity t. Rolling over in bed No difficulty LEFI Score Lower Extremity Functional Index Score 35 Outpatient Therapy Assessment Impairments Problems/Impairmments Palpation Tenderness,Impaired Range of Motion,Impaired Strength,Impaired Walking, Impaired Stair Climbing, Subjective C/O Pain,Impaired Self Care/Self Management Prognosis Rehab Potential Good Comment Skilled therapy is indicated to improve strength, increase AROM of the L knee, and return pt to PLOF. Clinical Impression Consistent with Diagnosis Yes Short Term Goals Number of Weeks 2 Decreased Palpation Tenderness Yes: 1/4 L med/lat patella Increase Range of Motion Yes: L knee 0-125 deg Increase Strength Yes: L LE 4+/5 Increase Ability to Walk Yes: > 15 min without pain Improve LEFI Score Yes: >45 Decrease Subjective C/O Pain Yes: 7/10 at worst in L LE Patient to be Ind w/ HEP Yes Security Technician Goals Number of Weeks 4 Decreased Palpation Tenderness Yes: 0/4 L knee Increase Range of Motion Yes: L knee 0-130 deg Increase Strength Yes: L LE 5/5 throughout Improve Gait Pattern without Assistive Yes: no antalgic gait pattern Device Increase Ability to Walk Yes: > 30 min without pain Improve LEFI Score Yes: > 55 Decrease Subjective C/O Pain Yes: 5/10 at worst L knee Patient to be Ind w/ Advanced HEP Yes Outpatient Therapy Plan of Care Treatment Plan May Include Therapeutic Exercise Including Home Yes Exercise Program Manual Therapy Techniques Yes Neuromuscular Re-education Yes Gait Training Yes ADL/Self Care Education Yes Thermal Modalities Yes Electrical Stimulation Yes Ultrasound/Phonophoresis Yes Orthotics/Bracing/Splinting Yes Eval/Re-Eval Yes Frequency Times per week 2 Duration Number of Weeks 4 Addendums This patient is a candidate for social No or vocational rehab? Patient/Guardian verbally acknowledges Yes understanding of treatment program and consents to further treatment? Patient/Guardian verbally acknowledges Yes understanding of diagnosis, prognosis and goals for treatment? Eval Complexity PT Charges 05149 - High Complexity Shoulder/Elbow Eval Shoulder Objective Measurements Elbow Objective Measurements PHYSICIAN CERTIFICATION: I certify the specified therapy services for Tammy Colindres are required, authorized, and reviewed every 30 days.
== END 2024-03-16 23:59 | disposition home or self-care (01) ==
LOC: PT 17:00
PROVIDERS: Visit Provider Orthopaedic Surgery
DX: M25.562 Pain in left knee (principal); Z98.890 Other specified postprocedural states
CPT/HCPCS: 97110; 97163; 97530

== ENCOUNTER 2024-05-06 16:40 | Outpatient (CLI) | payer OTHER, SELFPAY | END 2024-05-06 23:59 | disposition home or self-care (01) | LOC: RT 16:41 | PROVIDERS: PCP Family Medicine; Visit Provider Physician Assistant | DX: R00.2 Palpitations (principal) | CPT/HCPCS: 93225; 93227 ==

== ENCOUNTER 2024-06-16 14:46 | Outpatient (CLI) | payer OTHER, SELFPAY ==
--- NOTE | 2024-06-16 14:52 | CA_ITS ---
APPROVED REPORT EXAM: Comprehensive 2D, Doppler, and color-flow Echocardiogram Risk Advisor: Autumn Maurice RVT Ht: 5 ft 9 in Wt: 233lbs BSA: 2.20 BP: 156/89 mmHg Indications: SVT,PALPS,HTN,EX SMOKER 2D Dimensions IVSd 1.20 cm F: 0.6-1.0 LVEF (Visual) 58.00 % PWd 0.97 cm F: 0.6 - 1.0 LA Volume 35.00 mL LVDd 6.04 cm F: 3.9 - 5.3 LA Volume Index 15.84 mL/m2 (M/F) 16-34 LVDs 4.16 cm F: 2.2 - 3.5 EF AP4 48.10 % GL Strain -16.2 % M-Mode Dimensions LA Diam 3.29 cm (1.9-4.0) TAPSE 1.74 (<1.7) LV Diastology E Decel Time 240 (160-240 msec) E/A Ratio 0.8 Aortic Valve JAYDA Index 1.21 cm2/m2 AoV Peak Cesar. 115.0 (50-130 cm/s) AO Peak GR. 5.30 mmHg AO Mean GR. 3.10 (<5 mmHg) AO VTI 22.9 (18-25 cm) JAYDA (VTI) 2.74 (2.5-4.5 cm2) Mitral Valve MV E Max Cesar. 45.0 (40-130 cm/s) MV A Velocity 60.0 (40-130 cm/s) E/A Ratio 0.76 MV PHT 70.0 ms Pulmonary Valve PV Peak Velocity 77.0 (50-150 cm/s) Left Ventricle The left ventricle is normal size. The left ventricular systolic function is normal. The left ventricular ejection fraction is within the normal range. There is increased LV wall thickness. There is normal LV segmental wall motion. The left ventricular diastolic function is normal. LVEF is 55%. Right Ventricle The right ventricle is normal size. The right ventricular systolic function is normal. Atria The left atrium size is normal. The right atrium size is normal. There is no Doppler evidence of interatrial shunt. Aortic Valve The aortic valve opens well. There is no aortic valvular stenosis. Trace aortic regurgitation is present. Mitral Valve The mitral valve is normal in structure. No evidence of mitral valve stenosis. There is no mitral valve regurgitation noted. Tricuspid Valve Tricuspid valve is grossly normal in structure and function. Trace tricuspid regurgitation. There is insufficient jet to estimate RVSP. Pulmonic Valve The pulmonary valve is normal in structure. Trace pulmonic regurgitation. Great Vessels The aortic root is normal in size. The ascending aorta is mildly dilated, measuring 3.9 cm in diameter. IVC is normal in size and collapses >50% with inspiration. Pericardium There is no pericardial effusion. Other Information Study Quality: Fair Conclusion Normal biventricular systolic function. No significant valvular stenosis or regurgitation. Mildly dilated ascending aorta, measuring 3.9 cm in diameter. Correlation with recent or new CTA chest is recommended. Electronically signed by : Sadie White MD 06/29/2024 12:21:38
== END 2024-06-16 23:59 | disposition home or self-care (01) ==
LOC: RT 14:46
PROVIDERS: PCP Family Medicine; Visit Provider Physician Assistant
DX: R00.2 Palpitations (principal); I47.10 Supraventricular tachycardia, unspecified; R03.0 Elevated blood-pressure reading, without diagnosis of hypertension
CPT/HCPCS: 93306

== ENCOUNTER 2024-07-27 12:47 | Outpatient (CLI) | payer BC, SELFPAY ==
--- NOTE | 2024-07-27 12:48 | CT_ITS ---
FINAL REPORT TECHNIQUE: The patient was injected with IV contrast. Axial images were obtained through the chest in a PE protocol. 3-D reconstruction images were also performed. Individualized dose reduction techniques using automated exposure control or adjustment of the MA and/or KV according to patient's size were employed. CLINICAL HISTORY: dilated ascending aorta COMPARISON: None FINDINGS: CTA CHEST: Mediastinal vasculature is adequately opacified. No pulmonary artery filling defects are identified to suggest PE. The ascending aorta measures 3.7 x 3.9 cm in size. There is no aortic dissection. There is no axillary adenopathy. There is no hilar or mediastinal adenopathy. The heart size is normal. Moderate coronary artery calcifications are present. There is no pericardial or pleural effusion. Limited images of the upper abdomen demonstrate fatty infiltration of the liver. There are low-attenuation areas in the spleen, which may represent early enhancement during arterial phase. No suspicious infiltrate or nodule is identified. IMPRESSION: No pulmonary embolus or dissection. Ascending aorta measures 3.7 x 3.9 cm in size. Low-attenuation areas in the spleen, which likely represent early enhancement during arterial phase. Ultrasound of the upper abdomen might be helpful for further evaluation of the spleen if clinically indicated. Reviewed, Interpreted and Dictated by Abhijit Mendoza MD Transcribed by Clare Fitch Authenticated and [facility]
[2024-07-27 13:09] LABS: Blood Urea Nitrogen 10 mg/dl (7-17); Estimated Glomerular Filt Rate 88 ml/min (>60); GFR (African American) 107 ML/MIN (>60)
[2024-07-27] MEDS: 0.9 % SODIUM CHLORIDE 50 ML VIAL IV (13:59)
[2024-07-27] MEDS: IOPAMIDOL-370 (76%);100ML BOTTLE 80 ML IV (14:00)
[2024-07-27] MEDS: SODIUM CHLORIDE 0.9% 10ML SYR (RAD ONLY) 10 ML IV (14:00)
== END 2024-07-27 23:59 | disposition home or self-care (01) ==
LOC: RAD 12:48
PROVIDERS: PCP Family Medicine; Visit Provider Physician Assistant
DX: I77.810 Thoracic aortic ectasia (principal); R94.31 Abnormal electrocardiogram [ECG] [EKG]
CPT/HCPCS: 36415; 71275; 82565; 84520; Q9967

== ENCOUNTER 2024-08-06 14:20 | Emergency (ER) | payer BC, SELFPAY ==
[2024-08-06] VITALS (7 sets, daily range): BP systolic 117–168; BP diastolic 66–103; PULSE 68–96; RESP 16–21; TEMP 36.6; O2SAT 92–98; BMI 36.0
--- NOTE | 2024-08-06 14:43 | ED_ITS ---
<Statement entered by Farzaneh Arteaga MD - 08/07/24 14:15> I was consulted by the VICKI, and we discussed the complexity of the problems being addressed. I approved the treatment and management plan for this patient's care in the emergency department, thus performing a substantive portion of the medical decision making. Farzaneh Arteaga MD, KYRA, FACEP Discharge Plan Disposition Patient Disposition: Home, Self-Care Condition: Good Prescriptions Prescriptions: New ondansetron 4 mg tablet,disintegrating 4 mg PO DAILY 3 Days Qty: 3 0RF No Action metoprolol succinate 25 mg tablet extended release 24 hr 25 mg PO DAILY Qty: 30 2RF omeprazole magnesium [Prilosec OTC] 20 mg tablet,delayed release (DR/EC) 20 mg PO DAILY Referrals Follow up/Referrals: Zach Jin MD [Primary Care Provider] - See instructions Activity Restrictions/Add. Instructions Additional Instructions/Restrictions: Increase fluid intake. Acetaminophen ibuprofen [id number] for symptomatic relief. Take the Zofran for nausea. Follow-up with your PCP within 7 days. Return to the ED for worsening of condition. Clinical Impressions Clinical Impression: Influenza A Instructions Patient Instructions: DI for Nausea -- Adult, DI for Nausea -- Child Print Language Print Language: Latvian Discharge ED Provider: Farzaneh Arteaga General Adult HPI General Chief complaint: Nausea/Vomiting/Diarrhea Stated complaint: cough, vomiting, weakness Time Seen by Provider: 08/06/24 14:38 Mode of Arrival: Ambulatory Limitations: No Limitations Description of Symptoms (Recalled from ER Triage Doc. by RN): Patient states she starting coughing Thursday. States on she started having chills, body aches, N/V, and diarrhea. States she also feels weak. Denies blood in stool or vomit. Denies any urinary symptoms. States she has been taking her daily medications, but no other OTC treatments. History of Present Illness HPI narrative: Patient is a 49-year-old female who presents to the ED with complaints of nausea, vomiting and diarrhea over the past 2 days. Patient also adds that she has a nonproductive cough. Has not taken any medication prior to arrival. Related Data Home Medications ?Medication ?Instructions ?Recorded ?Confirmed omeprazole magnesium 20 mg 20 mg PO DAILY 02/10/23 08/06/24 tablet,delayed release (Prilosec OTC) Previous Rx's ?Medication ?Instructions ?Recorded metoprolol succinate 25 mg 25 mg PO DAILY #30 tabs 07/07/24 tablet,extended release 24 hr ondansetron 4 mg disintegrating 4 mg PO DAILY 3 days #3 tabs 08/06/24 tablet Allergies Allergy/AdvReac Type Severity Reaction Status Date / Time cefaclor Allergy Hives Verified 08/06/24 15:09 From BACTRIM Allergy Unknown I-ITCHING Uncoded 07/07/24 14:29 Penicillin Allergy Unknown I-HIVES Uncoded 07/07/24 14:29 [facility] Disclaimer: The information contained in this section may have been updated after the patient was seen, as this information can be updated by other users. Medical History Bright's disease History of gastroesophageal reflux (GERD) Hypertension Surgical History H/O left knee surgery Hx laparoscopic cholecystectomy History of gynecological procedure History of tubal ligation History of amputation of finger of right hand History of section Family History Other Thyroid cancer Social History Smoking Status: Never smoker alcohol intake: never substance use type: denies use current occupational status: employed Travel in the last 8 weeks: None Have you lived/traveled outside US in past 30 days?: No Contact w/someone who lives/traveled outside US past 30 days?: No Exposure to someone with infectious disease in past 14 days?: No Do you have a fever (greater than 100.4 F or 38 C)?: No Have you tested positive for COVID-19: No Exposed to someone with COVID-19 in past 14 days?: No Do you have a sore throat?: No Do you have a cough?: No Do you have any weakness?: No Do you have any diarrhea?: No Are you experiencing any unusual bleeding?: No Do you have any muscle aches/pain?: No Do you have any abdominal pain?: No Are you experiencing loss of taste or smell?: No Other Medical History Have you received the Flu Vaccine for this season: Yes Have you received the Pneumonia Vaccine: Yes ROS Obtained: Yes Systems reviewed as appropriate & no additional complaints except as documented Physical Exam General General appearance: alert and in no apparent distress Head Head exam: atraumatic and normocephalic Eye Eye exam: Present normal appearance and PERRL ENT ENT exam: Present normal exam Neck Neck exam: Present normal inspection Chest Chest inspection: Present normal inspection and symmetric chest wall rise; Absent tenderness Respiratory Respiratory exam: Present normal lung sounds bilaterally Cardiovascular Cardiovascular exam: Present regular rate Abdominal Exam Abdominal exam: Present soft and normal bowel sounds; Absent tenderness Extremities Exam Extremities exam: Present normal inspection and full ROM Back Exam Back exam: Present normal inspection and full ROM Neurological Exam Neurological exam: Present alert and oriented X3 Psychiatric Psychiatric exam: Present normal affect and normal mood Skin Skin exam: Present warm and dry Medical Decision Making Medical Records Screening: Per USPSTF and CDC recommendations, given the prevalence of disease in our region, it is our hospital?s policy to screen for HIV and viral Hepatitis for all patients aged 18 and over and those with ongoing risk factors. José Miguel Inquiry Pt receiving controlled substance: No José Miguel was queried for this patient: No Vital Signs: 08/06/24 14:27 08/06/24 14:56 08/06/24 14:57 Temperature 97.9 F Temperature Source Oral Pulse Rate 86 Pulse Rate [Radial] 96 H Respiratory Rate 16 17 Blood Pressure 153/100 H 133/86 Blood Pressure [R Arm] 168/103 H Blood Pressure Mean [R Arm] 124 Blood Pressure Source [R Arm] Automatic Cuff 02 Sat by Pulse Oximetry 98 93 L Oxygen Delivery Method Room Air Room Air 08/06/24 15:01 08/06/24 15:30 08/06/24 16:00 Temperature Temperature Source Pulse Rate 72 82 68 Pulse Rate [Radial] Respiratory Rate 20 21 20 Blood Pressure 117/78 129/77 129/66 Blood Pressure [R Arm] Blood Pressure Mean [R Arm] Blood Pressure Source [R Arm] 02 Sat by Pulse Oximetry 93 L 92 L 92 L Oxygen Delivery Method Room Air Room Air Room Air Lab Data Lab Results 08/06/24 14:35: Urine Color Yellow, Urine Appearance Cloudy, Urine pH 6.0, Ur Specific Wilder >= 1.030, Urine Protein 1+ A, Urine Glucose (UA) Negative, Urine Ketones Trace, Urine Blood Trace-i, Urine Nitrate Negative, Urine Bilirubin 1+ A, Urine Urobilinogen 0.2, Ur Leukocyte Esterase 1+ A, Urine RBC None, Urine WBC Occasional, Ur Squamous Epith Cells Occasional, Urine Bacteria Trace, Urine Mucus 3+, SARS-CoV-2 (PCR) Not detected, Influenza A Untype (PCR) Detected A, Influenza Type B (PCR) Not detected 08/06/24 14:50: WBC 5.1, RBC 5.21, Hgb 14.0, Hct 44.2, MCV 84.8, MCH 26.9 L, M CHC 31.7 L, RDW 14.8, Plt Count 208, MPV 10.9 H, Neut % (Auto) 66.2, Lymph % (Auto) 24.8, [place] % (Auto) 7.0, Eos % (Auto) 1.0, Baso % (Auto) 0.8, Neut # (Auto) 3.4, Lymph # (Auto) 1.3, [place] # (Auto) 0.4, Eos # (Auto) 0.1, Baso # (Auto) 0.0, Sodium 138, Potassium 3.3 L, Chloride 103, Carbon Dioxide 24, Anion Gap 14.3, BUN 16, Creatinine 1.00, Estimated Creat Clear 113, Estimated GFR 58 L , Est GFR ( Amer) 71, Glucose 140 H, Calcium 8.8, Total Bilirubin 0.4, A ST 45 H, ALT 38, Alkaline Phosphatase 81, Total Protein 8.3 H, Albumin 4.7, G lobulin 3.6 H, Albumin/Globulin Ratio 1.3, HCV Ab CINDY w/Rflx PCR Qn Negative, HIV Ag/Ab Combo Qual Negative 08/06/24 14:50 08/06/24 14:50 Orders (Tests/Meds): ORDERS Category Date Time Status Complete Blood Count Auto Diff Stat Lab 08/06/24 14:50 Completed Comprehensive Metabolic Panel Stat Lab 08/06/24 14:50 Completed HIV Combo Stat Lab 08/06/24 14:50 Completed Hepatitis C Ab Qual. W/ RFX Stat Lab 08/06/24 14:50 Completed Rapid PCR Covid and Flu A/B Stat Lab 08/06/24 14:35 Completed Urinalysis and Microscopic Routine Lab 08/06/24 14:35 Completed Urinalysis and Microscopic Stat Lab 08/06/24 16:14 Ordered Urine Culture Routine Micro 08/06/24 14:35 Received Medical Decision Narrative: In summary, patient is a 49-year-old female PMHx hypertension, SVT who presents to the ED for nausea, vomiting and diarrhea that started today. Patient states over the past 2 days she had upper respiratory symptoms including nonproductive cough that is improving. She has not taken any medication prior to arrival. Patient states the only medication she takes daily is an antihypertensive. Denies any recent trauma. Denies any history of CA. Upon initial exam, patient is alert, oriented and cooperative. Patient is hemodynamically stable. Physical exam remarkable for cough. Denies fever, chills, posterior neck pain, headache, visual disturbances, chest pain, shortness of breath, dysuria, oliguria, flank pain. Differential diagnosis includes ACS, pneumonia, pneumothorax, bronchitis, viral syndrome, among others. Initial workup will be conducted with hematologic labs & respiratory swab. Hematologic labs unremarkable for any leukocytosis, stable H&H. CMP remarkable for potassium of 3.3, AST mildly elevated at 45, most likely due to vomiting. Urinalysis unremarkable for any infection. Patient is positive for influenza A. I discussed Tamiflu with the patient, she declines Upon repeat evaluation, patient had an acceptable resolution of symptoms. They were ambulatory in the ED. Able to tolerate p.o. send prescription for Zofran to the pharmacy. Discussed with patient that she will need to follow-up with her PCP within 7 days. Return to the ED for any worsening of condition. Critical Care Critical Care Time Critical Care Time: No
--- NOTE | 2024-08-06 14:46 | PC.NURSE ---
radiology notified of us
[2024-08-06 14:56] LABS: Coronavirus 19, PCR Not Detected (NotDetected); Influenza B, PCR Not Detected (NotDetected)
[2024-08-06 15:08] LABS: Basophils % 0.8 % (0.1-2.0); Eosinophils # 0.1 K/mm3 (0.0-0.4); Hematocrit 44.2 % (37.0-47.0); Lymphocytes # 1.3 K/mm3 (0.7-4.5); Lymphocytes % 24.8 % (10-50); Mean Corpuscular HGB Conc 31.7 g/dL (31.8-35.4); Mean Corpuscular Hemoglobin 26.9 pg (27.0-31.2); Mean Corpuscular Volume 84.8 fl (81-99); Mean Platelet Volume 10.9 fl (7.4-10.4); Monocytes # 0.4 K/mm3 (0.1-1.0); Neutrophils # 3.4 K/mm3 (1.8-7.8); Neutrophils % 66.2 % (37.0-80.0); Platelet Count 208 K/mm3 (142-424); Red Blood Count 5.21 M/mm3 (4.20-5.40); Red Cell Distribution Width 14.8 % (11.5-17.5); White Blood Count 5.1 K/mm3 (4.8-10.8)
[2024-08-06 15:18] LABS: Albumin Level 4.7 g/dl (3.5-5.0); Chloride 103 mmol/L (98-107); Sodium 138 mmol/L (136-145)
[2024-08-06 15:19] LABS: Potassium 3.3 mmoL/L (3.5-5.1)
[2024-08-06 15:21] LABS: Alanine Aminotransferase 38 U/L (12-78); Albumin/Globulin Ratio 1.3 (1.1-1.8); Anion Gap 14.3 mEq/L (5-15); Aspartate Amino Transferase 45 U/L (14-36); Blood Urea Nitrogen 16 mg/dl (7-17); Carbon Dioxide 24 mmol/L (22.0-30.0); Creatinine Clearance Estimated 113 mL/min (50-200); Estimated Glomerular Filt Rate 58 ml/min (>60); GFR (African American) 71 ML/MIN (>60); Globulin 3.6 g/dL (1.3-3.2); Total Protein,Serum 8.3 g/dl (6.3-8.2)
[2024-08-06 15:22] LABS: Alkaline Phosphatase 81 U/L (38-126); Bilirubin,Total 0.4 mg/dl (0.2-1.3); Calcium 8.8 mg/dl (8.4-10.2); Glucose 140 mg/dl (74-100)
[2024-08-06 16:14] LABS: Microscopic, Urine URINE MICROSCOPIC (MICROSCOPIC)
[2024-08-06 16:30] LABS: Appearance,Urine CLOUDY (Clear); Blood, Urine TRACE-I (Negative); Color,Urine YELLOW (Yellow); Glucose,Urine (UA) Negative (Negative); Ketones,Urine TRACE (Negative); Leukocyte Esterase,Urine 1+ (Negative); Nitrate,Urine Negative (Negative); Protein,Urine 1+ (Negative); Specific Gravity, Urine >= 1.030 (1.005-1.030); Urobilinogen,Urine 0.2 EU/dl (0.2)
[2024-08-06 16:46] LABS: Influenza A, PCR Detected (NotDetected)
[2024-08-06 16:51] LABS: Bilirubin,Urine 1+ (Negative)
[2024-08-06 16:52] LABS: Bacteria,Urine Trace /lpf; Mucus,Urine 3+ /lpf; Squamous Epithelial Cell,Urine Occasional #/hpf (0-5); WBC,Urine Occasional #/hpf (0-3)
[2024-08-06 16:58] LABS: HIV Combo NEGATIVE (Negative)
[2024-08-06 17:06] LABS: Hepatitis C Ab Qual. W/ RFX NEGATIVE (Negative)
--- NOTE | 2024-08-09 17:16 | PC.NURSE ---
URINE CULTURE DISCUSSED WITH DR REYES, X SENT TO [facility]. SPOKE WITH PT, WILL [employer] RX
== END 2024-08-06 17:25 | disposition home or self-care (01) ==
PROVIDERS: Emergency Provider Student in an Organized Health Care Education/Training Program; PCP Family Medicine
DX: J10.1 Influenza due to other identified influenza virus with other respiratory manifestations (principal); R05.9 Cough, unspecified; R11.2 Nausea with vomiting, unspecified; M79.10 Myalgia, unspecified site; R19.7 Diarrhea, unspecified
CPT/HCPCS: 80053; 81001; 85025; 86803; 87086; 87088; 87186; 87389; 87636; 99283

== ENCOUNTER 2025-01-17 13:20 | Outpatient (CLI) | payer BC, SELFPAY ==
--- OUTSIDE RECORDS SUMMARY | 2023-08-06 12:00 | XMS_ITS ---
[facility] [address] [facility] [address] [place], [place] [id number] Care Team Providers Care Staff Field Engineer Name Role Phone Hallie Jin Primary Care Provider [phone] Josy Kasper Unavailable [phone] Allergies Allergen (clinical drug ingredient) Drug/Non Drug Allergy documented on EMR Reaction Allergy Type Onset Date Status sulfamethoxazole / trimethoprim Bactrim Unknown Drug Allergy Active ciprofloxacin Cipro Unknown Drug Allergy Act babs Substance with penicillin structure and antibacterial mechanism of action (substance) Penicillins Unknown Drug Allergy Active Reason For Referral Diagnosis 1 Tear of medial menis cus of left knee, unspecified tear type, unspecified whether old or current tear, subsequent encounter (S83.242I) Referral Organization [facility] Referring Provider First Name Josy Referring Provider Last Name Ranjith Referring Provider Speciality Physician Enrichment Specialist Referred Provider Orthopedics, . Referred Provider Specialty Orthopedic S urgery General Notes Josy Kasper 08/06 3:57:56 PM > Pt needs an appt with Matthew Alvares Melissa 08/10/2023 2:30:36 PM > Jul @ 915am Referral Priority Routine REASON FOR VISIT knee pain Medications Medication SIG (Take, Route, Frequency, Duration) Notes Start Date End Date Status valACYclovir HCl 1 GM 1 tab(s) orally 2 times a day; Duration: 10 day(s) Not-Taking PriLOSEC OTC 20 MG 1 tab(s) orally once a day 05/31/2012 Active Hyoscyamine Sulfate 0.125 MG 1 tab(s) orally 4 times a day; Duration: 10 days 03/19/2022 Not-Taking Medrol DIRECTED P.O. *Please review and pick correct strength-formulat ion from Twelvean options. If intended option is not shown, discontinue and re-order from Quick Search* 08/08/2019 Not-Taking Doxycycline Hyclate 100 MG 1 tab(s) orally 2 times a day 08/08/2019 Not-Taking Cyclobenzaprine HCl 10 MG 1 tab(s) orally 3 times a day prn 03/12/2022 Not-Taking Vital Signs Weight 228.6 lbs 08/06/2023 Blood pressure systolic 132 mm Hg 08/06/19 24 Blood pressure diastolic 90 mm Hg 024 Heart Rate 76 /min 08/06/2023 Height 66 in 08/06/2023 BMI 36.89 kg/m2 08/06/2023 Encounters Encounter Location Date Provider Diagnosis [facility] [address] [facility] [address] [place], [place] [id number] 08/06/2023 Josy Kasper Tear of medial menis cus of left knee, unspecified tear type, unspecified whether old or current tear, subsequent encounter S83.242D Assessments Encounter Date Diagnosis (ICD Code) Assessment Notes Treatment Notes Treatment Clinical Notes Section Notes 08/06/2023 Tear of medial meniscus of left knee, unspecified tear type, unspecified whether old or current tear, subsequent encounter (ICD-10 - S83.242D) Plan Of Treatment Referrals Referral Date Details 08/06/2023 08/06/2023, . Orthop edics Next Appt Details Follow Up: with ortho[facility] n: Progress Notes * LAUREEN VIDALB:1 08/16/1974 (49 yo F)Acc No.[id number]:08/06/2023 Progress Notes Patient: Chinyere SANTAIGO SCHUYLER LUA Provider: GLORY Villalpando :1975 A ge:48 Y S ex:Female Date:08/06/2023 Address:[address] [place] [address], [facility], [id number] Pcp:Hallie Jin Subjective: * Chief Complaints: * 1 . Knee pain. * HPI: K nee/Arrington: The pt is here today with c/o pain in left knee. Pt states this has been off and on for about a year. Pt states the pain has gotten worse over the past month and sometimes the knee will give away with walking. Pt states she is also having numbness from the left hip down to the left foot. She was seeing Dr. Serrano and she did an MRI and has a torn meniscus. Insurance would not pay for her to have surgery until she did therapy. She now has new insurance and would like to go back to see Dr. Serrano to possibly have surgery. * ROS: D ERMATOLOGY: no R alexa. n o H billie. G ASTROENTEROLOGY: no N ausea. n o V omiting. n o D iarrhea.? U ROLOGY: no D ifficulty urinating. n o B lood in urine. * Medical History: M edical History Verified. * Surgical History: B ladder Scope , Tubal , tip of ring finger right hand 04/2013. * Family History: F ather: alive 83 yrs, alzheimers. M other: alive 80 yrs. P aternal Grand Father: . P aternal Grand Mother: . M aternal Grand Father: . M aternal Grand Mother: . 1 brother(s) . 1 son(s) . . * Social History: C URRENT TOBACCO USE S moking Status: Patient does NOT smoke. C affeine: yes, frequency:daily. Exercise: no. Home smoke detector use: yes. Marital Status: . New since last visit: none. Occupation: yes. Past smoking status: yes, Smoking status: Does not smoke, Former Smoker: Yes, Quit smokin. Occup. exposure: none. Recreational drug use: no. Alcohol: no. Sexually active: yes. Travel ouside [place]: no. * Medications: T aking PriLOSEC OTC 20 MG Tablet Delayed Release 1 tab(s) orally once a day , Not-Taking valACYclovir HCl 1 GM Tablet 1 tab(s) orally 2 times a day , Not- Taking Cyclobenzaprine HCl 10 MG Tablet 1 tab(s) orally 3 times a day prn , Not-Taking Hyoscyamine Sulfate 0.125 MG Tablet 1 tab(s) orally 4 times a day , Not-Taking Doxycycline Hyclate 100 MG Tablet 1 tab(s) orally 2 times a day , Not-Taking Medrol DIRECTED P.O. , Notes to Pharmacist: *Please review and pick correct strength-formulation from Medispan options. If intended option is not shown, discontinue and re-order from Quick Search*, Medication List reviewed and reconciled with the patient * Allergies: P enicillins, Bactrim, Cipro. Objective: * Vitals: W t:228.6, Temp:98.0, BP:132/90, HR:76, Nurse:MADDISON, Ht: 66, BMI:36.89. * Examination: K nee / Arrington: Knee: left. I nspection: effusion: mild. P alpation: tenderness on lateral jointline, tenderness on medial jointline. C ollateral ligaments: intact medially and laterally, tenderness on medial side, tenderness on lateral side. Range of motion: pain at extremes of motion. M cmurray: positive medially. D rawer test: n egative. P atellofemoral joint: crepitations with movement. Assessment: * Assessment: 1. T ear of medial meniscus of left knee, unspecified tear type, unspecified whether old or current tear, subsequent encounter - D80.794J (Primary) Plan: * Treatment: * Follow Up: w marah ortho * Images: Billing Information: * Visit Code: 26944 Office Visit, Est Pt., Level 3. * Procedure Codes: * Electronic signature of GLORY Toro on 01/17/2025 at 01:25 PM EDT Sign off status: Pending * Provider: GLORY Villalpando Date: 0 08/06/2023 Generated for Kaci gonsales/Jasvir/Anhitting on: 0 01/17/2025 01:25 PM EDT History and Physical Notes * Examination Category Sub-Category Detail Notes Category Not es Knee / Arrington Aubrey: positive medially Drawer test: negative Patellofemoral joint: crepitations with movement Palpation: tenderness on latera l jointline, tenderness on medial jointline Knee: left Inspection: effusion: mild Range of motion: pain at extremes of motion Collateral ligaments: intact medially an d laterally, tenderness on medial side, tenderness on lateral side Consultation Request Notes Referral Date Referring Provider Referred Provider Not es 08/06/2023 Josy Kasper Orthopedics, .
--- OUTSIDE RECORDS SUMMARY | 2024-05-06 11:30 | XMS_ITS ---
Author Organization [facility] Address [address] [facility] [address] [place] [id number] Care Team Providers Care Second Steward Name Role Phone Hallie Jin Primary Care Provider Josy Kasper Unavailable [phone] Allergies Allergen (clinical drug ingredient) Drug/Non Drug Allergy documented on EMR Reaction Allergy Type Onset Date Status sulfamethoxazole / trimethoprim Bactrim Unknown Drug Allergy Active ciprofloxacin Cipro Unknown Drug Allergy Act babs Substance with penicillin structure and antibacterial mechanism of action (substance) Penicillins Unknown Drug Allergy Active Results Component Value Reference Range Notes CBC Fingerstick (in house) Reviewed date:05/08/2024 10:32:37 PM Interpretation: Performing Lab: Notes/Report: wbc 7.4 3.5 - 10 lym 23.6% 15 - 50 mid 6.3% 2 - 15 gran 70.1 35 - 80 rbc 4.61 3.5 - 5.5 hgb 12.9 11.5 - 16.5 hct 39.2 35 - 55 mcv 85.0 75 - 100 mch 28.0 25 - 35 mchc 32.9 31 - 38 plat 190 100 - 400 Holter Monitor- 48 hour Reviewed date:05/20/2024 02:03:22 PM Interpretation: Performing Lab: Notes/Report: REASON FOR VISIT cough, sore throat Medications Medication SIG (Take, Route, Frequency, Duration) Notes Start Date End Date Status Hyoscyamine Sulfate 0.125 MG 1 tab(s) orally 4 times a day; Duration: 10 days 03/19/2022 Not-Taking Cyclobenzaprine HCl 10 MG 1 tab(s) orally 3 times a day prn 03/12/2022 Not-Taking valACYclovir HCl 1 GM 1 tab(s) orally 2 times a day; Duration: 10 day(s) Not-Taking Benzonatate 200 MG 1 capsule Orally Three times a day 05/06/2024 Active Promethazine-DM 6.25-15 MG/5ML 5 ml as needed Orally every 6 hrs 05/06/2024 Active PriLOSEC OTC 20 MG 1 tab(s) orally once a day 05/31/2012 Active Medrol DIRECTED P.O. *Please review and pick correct strength-formulat ion from [employer] options. If intended option is not shown, discontinue and re-order from Quick Search* 08/08/2019 Not-Taking Doxycycline Hyclate 100 MG 1 tab(s) orally 2 times a day 08/08/2019 Not-Taking Vital Signs Weight 234.2 lbs 05/06/2024 Blood pressure systolic 134 mm Hg 05/06/20 24 Blood pressure diastolic 100 mm Hg 024 Heart Rate 78 /min 05/06/2024 Height 66 in 05/06/2024 BMI 37.80 kg/m2 05/06/2024 Encounters Encounter Location Date Provider Diagnosis [facility] [address] [facility] [address] [place] [phone] 05/06/2024 Josy Kasper Acute cough R05.1 an d Palpitations R00.2 Assessments Encounter Date Diagnosis (ICD Code) Assessment Notes Treatment Notes Treatment Clinical Notes Section Notes 05/06/2024 Acute cough (ICD-10 - R05.1) BP did improve after she sat but will give cough medication that does not cause increased BP. 05/06/2024 Palpitations (ICD-10 - R00.2) She has been having some palpitations for quite a while. Will start on a holter. May need another appt with Cardiology. Plan Of Treatment Medication Medication Name Sig Start Date Stop Date Notes Benzonatate 200 MG 1 capsule Orally Thr ee times a day 05/06/2024 Promethazine-DM 6.25-15 MG/5ML 5 ml as n eeded Orally every 6 hrs 05/06/2024 Treatment Notes Assessment Notes Acute cough BP did improve after she sat but will give cough medication that does not cause increased BP. Palpitations She has been having some palpitations for quite a while. Will start on a holter. May need another appt with Cardiology. Next Appt Details Follow Up: prn, Reason: Progress Notes * LAUREEN VIDALB:1 08/16/1974 (49 yo F)Acc No.[id number]:05/06/2024 Progress Notes Patient: SCHUYLER RICHARDSON Provider: GLORY Villalpando :1975 A ge:48 Y S ex:Female Date:05/06/2024 Address:[address] [place] [address], [facility], [id number] Pcp:Hallie Jin Subjective: * Chief Complaints: * 1 . Cough, sore throat. * HPI: E NT/respiratory: The patient is here today with c/o sore throat and cough since last weekend and not getting any better. Pt denies any fever. 48 year old female presents with c/o sore throat. c/o cough d ry without any sputum production. c/o Short of Breath. Denies : Fever. D enies : Chest Pain. * ROS: D ERMATOLOGY: no R alexa. [...] *Please review and pick correct strength-formulation from [employer] options. If intended option is not shown, discontinue and re-order from Quick Search*, Medication List reviewed and reconciled with the patient * Allergies: P enicillins, Bactrim, Cipro. Objective: * Vitals: W t:234.2, Temp:98.2, BP:134/100, HR:78, O2 Sat:99% on RA, Nurse:MADDISON, Ht: 66, Repeat BP:128/88, BMI:37.80. * Examination: E NT/Respiratory: General Appearance: N AD. E ars: a uditory canals normal bilaterally, TM's WNL. N ose : n ormal, no lesions, nares patent. S inuses : non tender bilaterally. O ral cavity : n o erythema or exudate seen on pharynx. N santino : no cervical lymphadenopathy. H eart : R RR, normal S1 S2, no murmurs. L ungs: c lear to auscultation bilaterally. Assessment: * Assessment: 1. A cute cough - R05.1 (Primary) 2 . P alpitations - R00.2 ? Plan: * Treatment: Value Reference Range w bc 7.4 3.5 - 10 * l ym 23.6% 15 - 50 * m id 6.3% 2 - 15 * g ran 70.1 35 - 80 * r bc 4.61 3.5 - 5.5 * h gb 12.9 11.5 - 16.5 * h ct 39.2 35 - 55 * m cv 85.0 75 - 100 * m ch 28.0 25 - 35 * m chc 32.9 31 - 38 * p lat 190 100 - 400 * Cecily Roy 05/06/2024 3: 48:01 PM > , Provider reviewed results while patient in office.Josy Kasper 05/08/2024 10:32:34 PM > Notes: BP did improve after she sat but will give cough medication that does not cause increased BP.??2.?Palpitations?Imaging: Holter Monitor- 48 hour (Performed Date - 05/06/2024)* Josy Kasper 05/20/2024 2 :03:17 PM > see TE Notes: She has been having some palpitations for quite a while. Will start on a holter. May need another appt with Cardiology.?? * Procedure Codes: 9 4760 [place], [address] CAPILLARY BLOOD DRAW, 14088 CBC WITH AUTO DIFF * Follow Up: p rn * Images: Billing Information: * Visit Code: 97730 Office Visit, Est Pt., Level 3. * Procedure Codes: [address] [place]. [address] CAPILLARY BLOOD DRAW. 72239 CBC WITH AUTO DIFF. * Electronic signature of GLORY Toro on 01/17/2025 at 01:25 PM EDT Sign off status: Pending * Provider: GLORY Villalpando Date: 1 07/06/2023 Generated for Printi ng/Faxing/eTransmitting on: 0 01/17/2025 01:25 PM EDT History and Physical Notes * HPI (History of Present Illness) Category Sub-Category Detail Notes Category Not es ENT/respiratory sore throat Short of Breath Chest Pain cough dry without any sput um production Fever Examination Category Sub-Category Detail Notes Category Not es ENT/Respiratory Oral cavity : no erythema or exudate s een on pharynx Sinuses : non tender bilateral ly Ears: auditory canals norm al bilaterally, TM's WNL Neck : no cervical lymphade nopathy Heart : RRR, normal S1 S2, n o murmurs Lungs: clear to auscultatio n bilaterally General Appearance: NAD Nose : normal, no lesions, nares patent
--- OUTSIDE RECORDS SUMMARY | 2025-01-17 13:26 | XMS_ITS | Patient Health Record ---
Author Organization [facility] Address [address] [facility] [address] [place] [id number] Care Team Providers Care Product Management Specialist Name Role Phone Hallie Jin Primary Care Provider Josy Kasper Unavailable [phone] Allergies Allergen (clinical drug ingredient) Drug/Non Drug [...] date:05/20/2024 02:03:22 PM Interpretation: Performing Lab: Notes/Report: Medications Medication SIG (Take, Route, Frequency, Duration) [...] Orally Three times a day 05/06/2024 Active PriLOSEC OTC 20 MG 1 tab(s) orally once a day 05/31/2012 Active Promethazine-DM 6.25-15 MG/5ML 5 ml as needed Orally every 6 hrs 05/06/2024 Active Medrol DIRECTED P.O. *Please review and pick correct strength-formulat ion from [employer] options. If intended option is not shown, discontinue and re-order from Quick Search* 08/08/2019 Not-Taking Doxycycline Hyclate 100 MG 1 tab(s) orally 2 times a day 08/08/2019 Not-Taking Immunizations Vaccine Route Administration Date Status Comme nts xFluzone (6mos and older)-trivalent IM Intramuscular 05/12/2013 Administered xFlu shot- 6months-36 months of yqk-WLEN-POLT-trivalent Unknown 05/11/2017 Administered Tetanus Tdap-Adacel (over 7yrs) IM Intramuscular 07/07/2012 Administered Fluzone PF Quad (6-35 months) Unknown 04/11/2021 Administered COVID 19 Pfizer Unknown 10/19/2020 Administered COVID 19 Pfizer Unknown 11/10/2020 Administered Problems Problem Type SNOMED Code ICD Code Onset Dates Problem Status W/U Status Risk Notes Problem Gastroesophageal reflux disease (disorder) (427275321) GERD [Gastroesophageal reflux disease] (530.81) Active confirmed Problem Vertigo (027963378) Vertigo (438.85) Active con firmed Problem Cholelithiasis (499777890) Cholelithiases (K80.20) Active confirmed Problem Chronic rhinitis (51663673) Rhinitis, unspecified type (J31.0) Active confirmed Problem Menorrhagia (finding) (818091381) Excessive bleeding in premenopausal period (N92.4) Active confirmed Vital Signs Heart Rate 78 /min 05/06/2024 Blood pressure diastolic 100 mm Hg 05/06/2024 Height 66 in 05/06/2024 Blood pressure systolic 134 mm Hg 05/06/2024 Weight 234.2 lbs 05/06/2024 BMI 37.80 kg/m2 05/06/2024 Encounters Encounter Location Date Provider Diagnosis [facility] [address] [place] [id number] 05/06/2024 Josy Kasper Acute cough R05.1 an d Palpitations R00.2 [facility] [address] [place] [phone] 05/20/2024 Josy Kasper Heart rate fast R00. 0 Assessments Encounter Date Diagnosis (ICD Code) Assessment Notes Treatment Notes Treatment Clinical Notes Section Notes 05/06/2024 Palpitations (ICD-10 - R00.2) She has been having some palpitations for quite a while. Will start on a holter. May need another appt with Cardiology. 05/06/2024 Acute cough (ICD-10 - R05.1) BP did improve after she sat but will give cough medication that does not cause increased BP. 05/20/2024 Heart rate fast (ICD-10 - R00.0) Plan Of Treatment No Information Insurance Providers Payer Name Payer Address Payer Phone Subscriber Number Group Number Insured Name Patient Relationship to Insured Coverage Start Date Coverage End Date [facility] [address] [address] [place] [phone] [id number] SCHUYLER VIDAL Self - patient is the insured Medications Administered Medication Instructions Date of Administration Dosage Notes Depo- Medrol 40 mg/ml 10/29/2022 1 mL Medical (General) History Surgical History Surgery Date(Month/Year) Bladder Scope Tubal tip of ring finger right hand 04/2013
[2025-01-17 13:48] LABS: Hematocrit 39.3 % (37.0-47.0); Hemoglobin 12.7 g/dL (12.2-16.2); Immature Granulocytes % 0.5 %; Mean Corpuscular HGB Conc 32.3 g/dL (31.8-35.4); Mean Corpuscular Hemoglobin 27.7 pg (27.0-31.2); Mean Corpuscular Volume 85.6 fl (81-99); Nucleated Red Blood Cells % 0 %; Platelet Count 203 K/mm3 (142-424); Red Blood Count 4.59 M/mm3 (4.20-5.40); Red Cell Distribution Width-SD 43.6 fL; White Blood Count 6.2 K/mm3 (4.8-10.8)
[2025-01-17 14:33] LABS: Free T4 (Free Thyroxine) 1.00 ng/dl (0.78-2.19)
[2025-01-17 14:42] LABS: Alanine Aminotransferase 23 U/L (12-78); Albumin Level 4.2 g/dl (3.5-5.0); Alkaline Phosphatase 80 U/L (38-126); Anion Gap 9.3 mEq/L (5-15); Aspartate Amino Transferase 23 U/L (14-36); Bilirubin,Direct 0.2 mg/dl (0.0-0.4); Bilirubin,Indirect 0.2 mg/dL (0.0-0.9); Bilirubin,Total 0.4 mg/dl (0.2-1.3); Bilirubin,Unconjugated 0.3 mg/dL (0.0-1.1); Blood Urea Nitrogen 15 mg/dl (7-17); Calcium 9.7 mg/dl (8.4-10.2); Carbon Dioxide 30 mmol/L (22.0-30.0); Chloride 103 mmol/L (98-107); Cholesterol 235 mg/dl (140-200); Creatinine,Serum 0.90 mg/dl (0.52-1.04); Estimated Glomerular Filt Rate 66 ml/min (>60); GFR (African American) 80 ML/MIN (>60); Glucose 101 mg/dl (74-100); HDL Cholesterol 38 mg/dl (40-60); Magnesium 1.9 mg/dl (1.6-2.3); Potassium 4.3 mmoL/L (3.5-5.1); Sodium 138 mmol/L (136-145); Total Protein,Serum 6.9 g/dl (6.3-8.2); Triglycerides 262 mg/dl (30-150)
[2025-01-17 15:13] LABS: Thyroid Stimulating Hormone 1.21 uIU/mL (0.465-4.68)
== END 2025-01-17 23:59 | disposition home or self-care (01) ==
LOC: LAB 13:21
PROVIDERS: PCP Family Medicine; Visit Provider Physician Assistant
DX: I10 Essential (primary) hypertension (principal)
CPT/HCPCS: 36415; 80048; 80061; 80076; 83735; 84439; 84443; 85025

== ENCOUNTER 2025-04-12 12:17 | Day surgery (SDC) | payer BC, SELFPAY ==
[2025-04-11 11:04] VITALS: BMI 36.5
--- NOTE | 2025-04-11 17:53 | EXP.HP ---
History of Present Illness *Admission Date: 04/12/25 *History of present illness: Mrs. Rinaldi is a 49-year-old female who is here for diagnostic EGD. The patient does report chronic GERD with symptoms for about 20 years. She has been on [id number]-yddbhub Prilosec for the last 16 years. She does get breakthrough heartburn and reflux and does report globus sensation regularly. She has the feeling of food getting stuck with dysphagia. The patient also has had severe chronic constipation most of her life. She has noted a change in bowel habit with more regulated bowel function. She does report excessive bloating, gassiness and belching. The patient reports no prior EGD. The patient's last colonoscopy was about 16 years ago. The examination is deemed medically necessary for diagnostic EGD. The patient has been seen, interviewed and examined prior to the procedure by both myself and the anesthesia provider. [facility] Disclaimer: The information contained in this section may have been updated after the patient was seen, as this information can be updated by other users. Medical History Bright's disease History of gastroesophageal reflux (GERD) Hypertension Surgical History H/O left knee surgery Hx laparoscopic cholecystectomy History of gynecological procedure History of tubal ligation History of amputation of finger of right hand History of section Family History Other Thyroid cancer Social History Smoking Status: Never smoker alcohol intake: never substance use type: denies use current occupational status: employed Travel in the last 8 weeks?: None Have you lived/traveled outside US in past 30 days?: No Contact w/someone who lives/traveled outside US past 30 days?: No Exposure to someone with infectious disease in past 14 days?: No Do you have a fever (greater than 100.4 F or 38 C)?: No Have you tested positive for COVID-19?: No Exposed to someone with COVID-19 in past 14 days?: No Do you have a sore throat?: No Do you have a cough?: No Do you have any weakness?: No Are you experiencing any nausea/vomitting?: No Do you have any diarrhea?: No Are you experiencing any unusual bleeding?: No Do you have any muscle aches/pain?: No Do you have any abdominal pain?: No Are you experiencing loss of taste or smell?: No Other Medical History Have you received the Flu Vaccine for this season: Yes Have you received the Pneumonia Vaccine: Yes Review of Systems Review of Systems Review of systems (narrative): Negative *Cardiovascular Comments: Negative *Gastrointestinal Comments: Negative *Genitourinary Comments: Negative *Musculoskeletal Comments: Negative *Neurologic Comments: Negative Meds Home Medications and Allergies Home Medications ?Medication ?Instructions ?Recorded ?Confirmed ?Type omeprazole magnesium 20 mg 20 mg PO DAILY 02/10/23 02/14/25 History tablet,delayed release (Prilosec OTC) metoprolol succinate 25 mg 25 mg PO DAILY #30 tabs 11/08/24 02/14/25 Rx tablet,extended release 24 hr valsartan 160 mg tablet 160 mg PO DAILY #90 tabs 01/02/25 02/14/25 Rx linaclotide 72 mcg capsule 72 mcg PO DAILY #90 caps 03/25/25 Rx (Linzess) New Prescriptions to Start Prescriptions: Allergies Allergy/AdvReac Type Severity Reaction Status Date / Time cefaclor Allergy Hives Verified 02/14/25 12:58 Penicillins Allergy Hives Verified 02/14/25 12:58 sulfamethoxazole (From Allergy Hives Verified 02/14/25 12:58 Bactrim) trimethoprim (From Bactrim) Allergy Hives Verified 02/14/25 12:58 Exam Data for Last 24 hours I & O for Last 24 hours: Intake & Output 04/08/25 04/09/25 04/10/25 04/11/25 23:59 23:59 23:59 23:59 Weight 240 lb *Routine HEENT Exam Head: Present normocephalic Eye: Present EOMI and PERRL ENT: Present mucous membranes moist *Routine Neck Exam Neck: Present supple *Routine Respiratory Exam Respiratory: Present CTA bilaterally *Routine Cardiovascular Exam Cardiovascular: Present RRR *Routine Abdominal Exam Abdominal: Present soft and normoactive bowel sounds; Absent tenderness *Routine Rectal Exam Rectal:: deferred *Routine Genitalia Exam Genitalia:: deferred *Routine Extremities Exam Extremities: Absent cyanosis, clubbing or edema *Routine Skin Exam Skin: Present warm; Absent rash *Routine Neurological Exam Neurological: Present alert and oriented X3 Assessment and Plan *Assessment and plan (1) Dysphagia: Status: Acute Category: Medical Code(s): R13.10 - Dysphagia, unspecified (2) Globus sensation: Status: Acute Category: Medical Code(s): R09.A2 - Foreign body sensation, throat (3) Acid reflux: Status: Acute Category: Medical Code(s): K21.9 - Gastro-esophageal reflux disease without esophagitis (4) Belching: Status: Acute Category: Medical Code(s): R14.2 - Eructation (5) Bloating: Status: Acute Category: Medical Code(s): R14.0 - Abdominal distension (gaseous) (6) Chronic constipation: Status: Acute Category: Medical Code(s): K59.09 - Other constipation Plan A/P: 1. Intractable GERD with dysphagia and globus sensation and belching for upper endoscopy is the preprocedural diagnosis. The patient will be anesthetized/sedated using MAC sedation. The patient has been seen and examined. Cardiac and lung assessment prior to the examination is stable. Proceed with planned diagnostic EGD.
--- NOTE | 2025-04-12 07:01 | P.PCN_ITS ---
[facility] Procedure Note Date: 04/12/25 Time: 13:26 Procedure Note:: Upper Endoscopy Procedure Report: Esophagogastroduodenoscopy with cold biopsies and TTS balloon dilation Endoscopost: Juvenal Doe II, MD Referring Physician: Case Jin MD Date of Procedure: April 12, 2025 Equipment: Olympus GIF-1100 standard upper endoscope Sedation: MAC sedation Indications: Mrs. Rinaldi is a 49-year-old female who is here for diagnostic EGD. The patient does report chronic GERD with symptoms for about 20 years. She has been on blkk-vko-mtzcflk Prilosec for the last 16 years. She does get breakthrough heartburn and reflux and does report globus sensation regularly. She has the feeling of food getting stuck with dysphagia. The patient also has had severe chronic constipation most of her life. She has noted a change in bowel habit with more regulated bowel function. She did take Linzess 145 mcg which resulted in some diarrhea. She is now on Linzess 72 mcg daily and this does not work as well. She does report excessive bloating, gassiness and belching. The patient reports no prior EGD. The patient's last colonoscopy was about 16 years ago. The examination is deemed medically necessary for diagnostic EGD. Procedure: Prior to the procedure, a history and physical exam was performed, and patient's medications and allergies were reviewed. The risks, benefits and alternatives of the sedation and procedure were discussed with the patient. All questions we re answered and informed consent was obtained. The patient was brought to the procedure room. Patient identification and proposed procedure were verified by the physician and the nurse. The patient was placed in a left lateral decubitus position and the scope was passed under direct vision. Throughout the procedure, the patient's blood pressure, pulse, and oxygen saturations were monitored continuously. The upper GI endoscopy was accomplished without difficulty. The patient tolerated the procedure well. Findings: The scope was passed directly into the upper esophagus and advanced to the third portion of the duodenum. The post bulbar duodenum, ampulla and duodenal bulb were normal with normal mucosa and conniventes. 2 cold biopsies were taken from the second portion of the duodenum for the disaccharidase assay. The scope was withdrawn through a normal duodenal bulb and pylorus into the stomach. There was bile reflux with moderate linear reactive gastropathy of the antrum and body of the stomach. Cold biopsies were taken from the antrum. Upon retroflexion there was no hiatal hernia. The scope was then withdrawn into the esophagus. There was no evidence of reflux esophagitis or Sam's. There were tertiary contractions and evidence of mild esophageal dysmotility. There were no rings, strictures, corrugation, furrowing, webs or inlet patch. The entire esophagus was dilated to 60 Kyr[place]z/20 mm with a TTS hydrostatic balloon. There was some mild resistance at the cricopharyngeus/cricopharyngeal spasm. The remainder of the esophageal mucosa was normal. Impression: 1. Nonerosive GERD with mild esophageal dysmotility and cricopharyngeal spasm status post dilation to 20 mm 2. Bile reflux with moderate linear reactive gastropathy Plan: I will follow-up the biopsies and disaccharidase assay. We will discuss additional treatment options today.
[2025-04-12 12:29] VITALS: BP 186/88; PULSE 69; RESP 16; TEMP 36.5; O2SAT 96; BMI 36.5
[2025-04-12] MEDS: LACTATED RINGERS 1000ML 1,000 ML 50 ML IV (12:40)
--- NOTE | 2025-04-12 12:46 | P.PNANES_ITS ---
[facility] Disclaimer: The information contained in this section may have been updated after the patient was seen, as this information can be updated by other users. Medical History Bright's disease History of gastroesophageal reflux (GERD) Hypertension Surgical History H/O left knee surgery Hx laparoscopic cholecystectomy History of gynecological procedure History of tubal ligation History of amputation of finger of right hand History of section Family History Other Thyroid cancer Social History Smoking Status: Never smoker alcohol intake: never substance use type: denies use current occupational status: employed Travel in the last 8 weeks?: None Have you lived/traveled outside [place] in past 30 days?: No Contact w/someone who lives/traveled outside [place] past 30 days?: No Exposure to someone with infectious disease in past 14 days?: No Do you have a fever (greater than 100.4 F or 38 C)?: No Have you tested positive for COVID-19?: No Exposed to someone with COVID-19 in past 14 days?: No Do you have a sore throat?: No Do you have a cough?: No Do you have any weakness?: No Are you experiencing any nausea/vomitting?: No Do you have any diarrhea?: No Are you experiencing any unusual bleeding?: No Do you have any muscle aches/pain?: No Do you have any abdominal pain?: No Are you experiencing loss of taste or smell?: No [facility] Anesthesia Checklist Patient Identification Patient Identification: Arm Band and Verbal (Name & ) Structural Data Admitted From: Home Planned Operative Procedure/s: EGD Consent for Planned Operative Procedure(s) Verified: Yes Verified Documents: Surgical Consent and History and Physical NPO Status Verified Time NPO: 00:00 Additional verifications Anesthesia Reactions: No Hx Blood Transfusions: No Blood Transfusion Reaction: No Airway Assessment Mallampati Score:: Class II Dentition: Edentulous Neurological Assessment Level of Consciousness: Awake, Alert and Appropriate Hx Seizures: No Numbness or tingling in extremities: No Anesthesia Plan Anesthesia Risk discussed: Yes Anesthesia Plan: Verified ASA Class: II Anesthesia Type: MAC
[2025-04-12 13:29] VITALS: BP 132/85; PULSE 69; RESP 18; TEMP 36.6; O2SAT 97
[2025-04-12 13:39] VITALS: BP 128/80; PULSE 60; RESP 18; TEMP 36.6; O2SAT 97
[2025-04-12 13:49] VITALS: BP 128/81; PULSE 59; RESP 18; TEMP 36.6; O2SAT 98
[2025-04-12 13:59] VITALS: BP 128/84; PULSE 60; RESP 18; TEMP 36.6; O2SAT 97
[2025-04-18 14:30] LABS: Interpretation Notes (.); Lactase 46.08 (>/= 14.0); Maltase 120.45 (>/= 110.0); Palatinase 9.43 (>/= 8.5); Reference Notes (.); Sucrase 23.04 (>/= 25.0)
== END 2025-04-12 14:39 | disposition home or self-care (01) ==
PROVIDERS: PCP Family Medicine; Visit Provider Internal Medicine Gastroenterology
PROC: 0DJ08ZZ Inspection of Upper Intestinal Tract, Via Natural or Artificial Opening Endoscopic (ICD-10-PCS; CPT 43239; principal; 2025-04-12 14:00)
DX: K21.9 Gastro-esophageal reflux disease without esophagitis (principal); K31.89 Other diseases of stomach and duodenum; K22.4 Dyskinesia of esophagus; K59.09 Other constipation; I10 Essential (primary) hypertension; Z88.0 Allergy status to penicillin; Z88.2 Allergy status to sulfonamides; Z88.1 Allergy status to other antibiotic agents
CPT/HCPCS: 43239; 43249; 82657; C1726; J2003; J2704; J7120